=== PATIENT | female | born 1985 | race Caucasian/White ===

== ENCOUNTER 2016-05-16 09:58 | Emergency (ER) | payer BC ==
[2016-05-16] MEDS ORDERED: Ondansetron 4 MG/2 ML SDV IVPUSH ONE (10:13)
[2016-05-16] MEDS ORDERED: Ketorolac 30 MG/ML SDV IVPUSH ONE (10:13)
[2016-05-16] MEDS ORDERED: LORazepam 2 MG/ML MDV IVPUSH ONE (10:13)
[2016-05-16] MEDS ORDERED: Sodium Chloride 0.9% 1,000 ML IV ONE (10:13)
[2016-05-16] MEDS ORDERED: diphenhydrAMINE 50 MG/ML SDV IVPUSH ONE (10:49)
--- NOTE | 2016-05-16 10:57 | EDM.PDOC ---
ED HPI HEADACHE COMPLAINT - General Chief Complaint: Headache Stated Complaint: MIGRAINE Time Seen by Provider: 05/16/16 10:30 Source of Information: Reports: Patient History Limitations: Reports: No limitations - History of Present Illness INITIAL COMMENTS - FREE TEXT/NARRATIVE: History of present illness: [30-year-old female comes in with complaints of acute onset migraine headache. Patient does have a known history of migraines, does take medication for the, but indicates this one is one of her stronger ones. Patient denies this is the worst it's ever had in fact indicating this is slightly worse than average but not the worst headache of her life] Review of systems: As per history of present illness and below otherwise all systems reviewed and negative. Past medical history: As per history of present illness and as reviewed below otherwise noncontributory. Surgical history: As per history of present illness and as reviewed below otherwise noncontributory. Social history: No reported history of drug or alcohol abuse. Family history: As per history of present illness and as reviewed below otherwise noncontributory. Physical exam: HEENT: Atraumatic, normocephalic, pupils reactive, negative for conjunctival pallor or scleral icterus, mucous membranes moist, throat clear, neck supple, nontender, trachea midline. Lungs: Clear to auscultation, breath sounds equal bilaterally, chest nontender. Heart: S1S2, regular, negative for clicks, rubs, or JVD. Abdomen: Soft, nondistended, nontender. Negative for masses or hepatosplenomegaly. Negative for costovertebral tenderness. Pelvis: Stable nontender. Genitourinary: Deferred. Rectal: Deferred. Extremities: Atraumatic, negative for cords or calf pain. Neurovascular unremarkable. Neuro: Awake, alert, oriented. Cranial nerves II through XII unremarkable. Cerebellum unremarkable. Motor and sensory unremarkable throughout. Exam nonfocal. Patient had some locations specific hives to her right a.c. status post Zofran infusion. Patient denies any history of issues with Zofran, actually indicates prior stating she's had Zofran on many occasions without any side effects. Benadryl 50 mg IV given for new onset-and right a.c. Diagnostics: [] Therapeutics: [Zofran, Toradol, Ativan, later IV fluid, Benadryl 50 mg] Impression: [Migraine, allergic reaction] Plan: [Resume with routine migraine management followup with PCP when necessary] Definitive disposition and diagnosis as appropriate pending reevaluation and review of above. 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) Other OB/BYN History: LEEP Neurological History: Reports: Migraines - Infectious Disease History Infectious Disease History: Reports: C-difficile Other Infectious Disease History: childhood - Past Surgical History Female Surgical History: Reports: LEEP Social & Family History - Family History Family Medical History: Noncontributory - Tobacco Use Smoking Status *Q: Current Every Day Smoker Years of Tobacco use: 16 Packs/Tins Daily: 1 Used Tobacco, but Quit: No Second Hand Smoke Exposure: Yes - Caffeine Use Caffeine Use: Reports: None Caffeine Use Comment: 3-4 - Alcohol Use Days Per Week of Alcohol Use: 0 Number of Drinks Per Day: 0 Total Drinks Per Week: 0 - Recreational Drug Use Recreational Drug Use: No Drug Use in Last 12 Months: No - Living Situation & Occupation Living situation: Reports: with significant other (3 children) Occupation: employed ED ROS GENERAL - Review of Systems Review Of Systems: See Below (See history of present illness) - Physical Exam Exam: See Below (See history of present illness) Course - Vital Signs Last Recorded V/S: Last Vital Signs Temp 36.6 C 05/16/16 10:09 Pulse 68 05/16/16 11:30 Resp 16 05/16/16 11:30 BP 89/52 L 05/16/16 11:30 Pulse Ox 100 05/16/16 11:30 - Orders/Labs/Meds Meds: Medications Discontinued Medications Generic Name Dose Route Start Last Admin Trade Name Freq PRN Reason Stop Dose Admin Diphenhydramine HCl 50 mg 05/16/16 10:49 05/16/16 10:57 Benadryl IVPUSH 05/16/16 10:50 50 mg ONETIME ONE Administration Sodium Chloride 1,000 mls @ 999 mls/hr 05/16/16 10:13 05/16/16 10:33 Normal Saline IV 05/16/16 11:13 999 mls/hr STAT ONE Administration Ketorolac Tromethamine 30 mg 05/16/16 10:13 05/16/16 11:00 Toradol IVPUSH 05/16/16 10:14 30 mg ONETIME ONE Administration Lorazepam 1 mg 05/16/16 10:13 05/16/16 11:01 Ativan IVPUSH 05/16/16 10:14 1 mg ONETIME ONE Administration Ondansetron HCl 8 mg 05/16/16 10:13 05/16/16 10:33 Zofran IVPUSH 05/16/16 10:14 8 mg ONETIME ONE Administration Departure - Departure Time of Disposition: 12:10 Disposition: Home, Self-Care 01 Condition: good Clinical Impression: Migraine Instructions: Migraine Headache, [id number] Referrals: Jed Matt MD [Primary Care Provider] - Forms: ED Department Discharge Additional Instructions: The following information is given to patients seen in the emergency department who are being discharged to home. This information is to outline your options for follow-up care. We provide all patients seen in our emergency department with a follow-up referral. The need for follow-up, as well as the timing and circumstances, are variable depending upon the specifics of your emergency department visit. If you don't have a primary care physician on staff, we will provide you with a referral. We always advise you to contact your personal physician following an emergency department visit to inform them of the circumstance of the visit and for follow-up with them and/or the need for any referrals to a consulting specialist. The emergency department will also refer you to a specialist when appropriate. This referral assures that you have the opportunity for follow-up care with a specialist. All of these measure are taken in an effort to provide you with optimal care, which includes your follow-up. Under all circumstances we always encourage you to contact your private physician who remains a resource for coordinating your care. When calling for follow-up care, please make the office aware that this follow-up is from your recent emergency room visit. If for any reason you are refused follow-up, please contact the [facility] Emergency Department at and asked to speak to the emergency department charge nurse. Continue with your normal migraine routine management Followup with PCP in one to 2 days Return to ED as needed as discussed
[2016-05-16 12:52] VITALS: BP 94/45
== END 2016-05-16 12:08 | disposition home or self-care (01) ==
LOC: MW.ED 09:58
DX: G43.909 Migraine, unspecified, not intractable, without status migrainosus (principal); T78.40XA Allergy, unspecified, initial encounter; F17.210 Nicotine dependence, cigarettes, uncomplicated; Z79.899 Other long term (current) drug therapy
CPT/HCPCS: 96361; 96374; 96375; 99283; J1200; J1885; J2060; J2405; J7040; 99284

== ENCOUNTER 2016-06-24 08:07 | Emergency (ER) | payer BC ==
[2016-06-24] MEDS ORDERED: Sodium Chloride 0.9% 2.5 ML Syringe FLUSH PRN (08:38)
[2016-06-24] MEDS ORDERED: Ondansetron 4 MG/2 ML SDV IVPUSH ONE (08:38)
[2016-06-24] MEDS ORDERED: Ketorolac 30 MG/ML SDV IVPUSH ONE (08:38)
[2016-06-24] MEDS ORDERED: Sodium Chloride 0.9% 10 ML Syringe FLUSH PRN (08:38)
[2016-06-24] MEDS ORDERED: Sodium Chloride 0.9% 1,000 ML IV ONE (08:38)
[2016-06-24] MEDS ORDERED: Metoclopramide 10 MG/2 ML SDV IV ONE (08:51)
--- NOTE | 2016-06-24 09:28 | EDM.PDOC ---
ED HPI GENERAL MEDICAL PROBLEM - General Chief Complaint: Headache Stated Complaint: Migraine Time Seen by Provider: 06/24/16 08:09 Source of Information: Reports: Patient History Limitations: Reports: No limitations - History of Present Illness INITIAL COMMENTS - FREE TEXT/NARRATIVE: History of present illness: [] Patient has a history of migraines and presents with a typical migraine that began last night. She took Imitrex without any relief. She has been vomiting and states when she gets to this point she usually comes to the emergency room Review of systems: As per history of present illness and below otherwise all systems reviewed and negative. Past medical history: As per history of present illness and as reviewed below otherwise noncontributory. Surgical history: As per history of present illness and as reviewed below otherwise noncontributory. Social history: No reported history of drug or alcohol abuse. Family history: As per history of present illness and as reviewed below otherwise noncontributory. Physical exam: General: Well developed, well nourished in NAD HEENT: Atraumatic, normocephalic, pupils reactive, negative for conjunctival pallor or scleral icterus, mucous membranes moist, throat clear, neck supple, nontender, trachea midline. No sinus tenderness to palpation, no neck rigidity Lungs: Clear to auscultation, breath sounds equal bilaterally, chest nontender. Heart: S1S2, regular, negative for clicks, rubs, or JVD. Abdomen: Soft, nondistended, nontender. Negative for masses or hepatosplenomegaly. Negative for costovertebral tenderness. Pelvis: Stable nontender. Genitourinary: Deferred. Rectal: Deferred. Extremities: Atraumatic, negative for cords or calf pain. Neurovascular unremarkable. Neuro: Awake, alert, oriented. Cranial nerves II through XII unremarkable. Cerebellum unremarkable. Motor and sensory unremarkable throughout. Exam nonfocal. Diagnostics: [] Therapeutics: [] IV hydrated with Toradol and Reglan given with improvement Impression: [] Migraine headache Plan: [] Followup with your primary care as needed Definitive disposition and diagnosis as appropriate pending reevaluation and review of above. 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) Other OB/BYN History: LEEP Neurological History: Reports: Migraines - Infectious Disease History Infectious Disease History: Reports: Chicken pox Other Infectious Disease History: childhood - Past Surgical History Female Surgical History: Reports: LEEP Social & Family History - Family History Family Medical History: Noncontributory - Tobacco Use Smoking Status *Q: Current Every Day Smoker Years of Tobacco use: 16 Packs/Tins Daily: 1 Used Tobacco, but Quit: No Second Hand Smoke Exposure: Yes - Caffeine Use Caffeine Use: Reports: None Caffeine Use Comment: 3-4 - Alcohol Use Days Per Week of Alcohol Use: 0 Number of Drinks Per Day: 0 Total Drinks Per Week: 0 - Recreational Drug Use Recreational Drug Use: No Drug Use in Last 12 Months: No - Living Situation & Occupation Living situation: Reports: with significant other (3 children) Occupation: employed ED ROS GENERAL - Review of Systems Review Of Systems: See Below (See history of present illness) - Physical Exam Exam: See Below (See history of present illness) Course - Vital Signs Last Recorded V/S: Last Vital Signs Temp 36.9 C 06/24/16 09:41 Pulse 77 06/24/16 09:41 Resp 16 06/24/16 09:41 BP 103/44 L 06/24/16 09:41 Pulse Ox 98 06/24/16 09:41 - Orders/Labs/Meds Orders: Active Orders 24 hr Category Date Time Status Peripheral IV Insertion Adult [OM.PC] Stat Oth 06/24/16 08:38 Ordered Meds: Medications Discontinued Medications Generic Name Dose Route Start Last Admin Trade Name Freq PRN Reason Stop Dose Admin Sodium Chloride 1,000 mls @ 999 mls/hr 06/24/16 08:38 06/24/16 08:49 Normal Saline IV 06/24/16 09:38 999 mls/hr .Bolus ONE Administration Ketorolac Tromethamine 30 mg 06/24/16 08:38 06/24/16 08:51 Toradol IVPUSH 06/24/16 08:39 30 mg ONETIME ONE Administration Metoclopramide HCl 10 mg 06/24/16 08:51 06/24/16 09:02 Reglan IV 06/24/16 08:52 10 mg ONETIME ONE Administration Ondansetron HCl 4 mg 06/24/16 08:38 06/24/16 08:53 Zofran IVPUSH 06/24/16 08:39 Not Given ONETIME ONE Sodium Chloride 10 ml 06/24/16 08:38 Saline Flush FLUSH ASDIRECTED PRN Keep Vein Open Sodium Chloride 2.5 ml 06/24/16 08:38 Saline Flush FLUSH ASDIRECTED PRN Keep Vein Open Departure - Departure Time of Disposition: 11:00 Disposition: Home, Self-Care 01 Condition: good Clinical Impression: Migraine headache Qualifiers: Migraine type: other Status migrainosus presence: without status migrainosus Intractability: not intractable Qualified Code(s): G43.809 - Other migraine, not intractable, without status migrainosus - Discharge Information Instructions: Migraine Headache, [id number] Referrals: Jed Matt MD [Primary Care Provider] - Forms: ED Department Discharge Additional Instructions: The following information is given to patients seen in the emergency department who are being discharged to home. This information is to outline your options for follow-up care. We provide all patients seen in our emergency department with a follow-up referral. The need for follow-up, as well as the timing and circumstances, are variable depending upon the specifics of your emergency department visit. If you don't have a primary care physician on staff, we will provide you with a referral. We always advise you to contact your personal physician following an emergency department visit to inform them of the circumstance of the visit and for follow-up with them and/or the need for any referrals to a consulting specialist. The emergency department will also refer you to a specialist when appropriate. This referral assures that you have the opportunity for follow-up care with a specialist. All of these measure are taken in an effort to provide you with optimal care, which includes your follow-up. Under all circumstances we always encourage you to contact your private physician who remains a resource for coordinating your care. When calling for follow-up care, please make the office aware that this follow-up is from your recent emergency room visit. If for any reason you are refused follow-up, please contact the [facility] Emergency Department at and asked to speak to the emergency department charge nurse. [facility] [address] [place] [id number] - My Orders Last 24 Hours: My Active Orders 06/24/16 08:38 Peripheral IV Insertion Adult [OM.PC] Stat - Assessment/Plan Last 24 Hours: My Active Orders 06/24/16 08:38 Peripheral IV Insertion Adult [OM.PC] Stat ED HPI HEADACHE COMPLAINT - General Chief Complaint: Headache Stated Complaint: Migraine Time Seen by Provider: 06/24/16 08:09 - Related Data Allergies/ADRs: Allergies Allergy/AdvReac Type Severity Reaction Status Date / Time ondansetron Allergy Rash Verified 06/24/16 08:54 [From Zofran (as hydrochloride)] Home Meds: Home Meds Topiramate [Topamax] 50 mg PO DAILY 01/28/15 [History] SUMAtriptan Succinate [Imitrex] 100 mg PO DAILY PRN 06/24/16 [History] Departure - Departure Time of Disposition: 11:00 Disposition: Home, Self-Care 01 Clinical Impression: Migraine headache Qualifiers: Migraine type: other Status migrainosus presence: without status migrainosus Intractability: not intractable Qualified Code(s): G43.809 - Other migraine, not intractable, without status migrainosus Instructions: Migraine Headache, [id number] Referrals: Jed Matt MD [Primary Care Provider] - Forms: ED Department Discharge Additional Instructions: The following information is given to patients seen in the emergency department who are being discharged to home. This information is to outline your options for follow-up care. We provide all patients seen in our emergency department with a follow-up referral. The need for follow-up, as well as the timing and circumstances, are variable depending upon the specifics of your emergency department visit. If you don't have a primary care physician on staff, we will provide you with a referral. We always advise you to contact your personal physician following an emergency department visit to inform them of the circumstance of the visit and for follow-up with them and/or the need for any referrals to a consulting specialist. The emergency department will also refer you to a specialist when appropriate. This referral assures that you have the opportunity for follow-up care with a specialist. All of these measure are taken in an effort to provide you with optimal care, which includes your follow-up. Under all circumstances we always encourage you to contact your private physician who remains a resource for coordinating your care. When calling for follow-up care, please make the office aware that this follow-up is from your recent emergency room visit. If for any reason you are refused follow-up, please contact the [facility] Emergency Department at and asked to speak to the emergency department charge nurse. [facility] [address] [place] [id number]
[2016-06-24 10:05] VITALS: BP 103/44
== END 2016-06-24 09:41 | disposition home or self-care (01) ==
LOC: MW.ED 08:07
DX: G43.809 Other migraine, not intractable, without status migrainosus (principal); F17.210 Nicotine dependence, cigarettes, uncomplicated; Z88.8 Allergy status to other drugs, medicaments and biological substances; Z79.899 Other long term (current) drug therapy
CPT/HCPCS: 96361; 96374; 96375; 99283; J1885; J2765; J7040; 99284

== ENCOUNTER 2016-07-20 11:12 | Emergency (ER) | payer BC ==
[2016-07-20] MEDS ORDERED: Ketorolac 30 MG/ML SDV IVPUSH ONE (11:19)
[2016-07-20] MEDS ORDERED: Metoclopramide 10 MG/2 ML SDV IV ONE (11:19)
[2016-07-20] MEDS ORDERED: Sodium Chloride 0.9% 1,000 ML IV ONE (11:19)
[2016-07-20] MEDS ORDERED: diphenhydrAMINE 50 MG/ML SDV IVPUSH ONE (11:19)
--- NOTE | 2016-07-20 11:21 | EDM.PDOC ---
ED HPI GENERAL MEDICAL PROBLEM - General Chief Complaint: Headache Stated Complaint: MIGRANE Time Seen by Provider: 07/20/16 11:17 - History of Present Illness INITIAL COMMENTS - FREE TEXT/NARRATIVE: HISTORY AND PHYSICAL: History of present illness: Patient is a 30-year-old white female history migraine headaches presents with concern of acute migraine headache she says associated nausea states is his typical migraine she is followed by neurology for this and in the process of prophylactic therapy Review of systems: As per history of present illness and below otherwise all systems reviewed and negative. Past medical history: As per history of present illness and as reviewed below otherwise noncontributory. Surgical history: As per history of present illness and as reviewed below otherwise noncontributory. Social history: No reported history of drug or alcohol abuse. Family history: As per history of present illness and as reviewed below otherwise noncontributory. Physical exam: HEENT: Atraumatic, normocephalic, pupils reactive, negative for conjunctival pallor or scleral icterus, mucous membranes moist, throat clear, neck supple, nontender, trachea midline. Lungs: Clear to auscultation, breath sounds equal bilaterally, chest nontender. Heart: S1S2, regular, negative for clicks, rubs, or JVD. Abdomen: Soft, nondistended, nontender. Negative for masses or hepatosplenomegaly. Negative for costovertebral tenderness. Pelvis: Stable nontender. Genitourinary: Deferred. Rectal: Deferred. Extremities: Atraumatic, negative for cords or calf pain. Neurovascular unremarkable. Neuro: Awake, alert, oriented. Cranial nerves II through XII unremarkable. Cerebellum unremarkable. Motor and sensory unremarkable throughout. Exam nonfocal. Diagnostics: None Therapeutics: Normal saline 1 L bolus Reglan 10 mg IV Benadryl 50 mg IV Toradol 30 mg IV Impression: #1 migraine headache Definitive disposition and diagnosis as appropriate pending reevaluation and review of above. 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) Other OB/BYN History: LEEP Neurological History: Reports: Migraines - Infectious Disease History Infectious Disease History: Reports: Chicken Pox Other Infectious Disease History: childhood - Past Surgical History Female Surgical History: Reports: LEEP Social & Family History - Family History Family Medical History: Noncontributory - Tobacco Use Smoking Status *Q: Current Every Day Smoker Years of Tobacco use: 16 Packs/Tins Daily: 1 Used Tobacco, but Quit: No Second Hand Smoke Exposure: Yes - Caffeine Use Caffeine Use: Reports: None Caffeine Use Comment: 3-4 - Alcohol Use Days Per Week of Alcohol Use: 0 Number of Drinks Per Day: 0 Total Drinks Per Week: 0 - Recreational Drug Use Recreational Drug Use: No Drug Use in Last 12 Months: No - Living Situation & Occupation Living situation: Reports: with Significant Other Occupation: Employed ED ROS GENERAL - Review of Systems Review Of Systems: ROS reveals no pertinent complaints other than HPI. ED EXAM, GENERAL - Physical Exam Exam: See Below (See dictation) Course - Orders/Labs/Meds Orders: Active Orders 24 hr Category Date Time Status Ketorolac [Toradol] Med 07/20/16 11:19 Once 30 mg IVPUSH ONETIME ONE Metoclopramide [Reglan] Med 07/20/16 11:19 Once 10 mg IV ONETIME ONE Sodium Chloride 0.9% [Normal Saline] 1,000 ml Med 07/20/16 11:19 Ordered IV STAT diphenhydrAMINE [Benadryl] Med 07/20/16 11:19 Once 50 mg IVPUSH ONETIME ONE Departure - Departure Time of Disposition: 11:21 Disposition: Home, Self-Care 01 Condition: good Clinical Impression: Migraine - Discharge Information Forms: ED Department Discharge Additional Instructions: The following information is given to patients seen in the emergency department who are being discharged to home. This information is to outline your options for follow-up care. We provide all patients seen in our emergency department with a follow-up referral. The need for follow-up, as well as the timing and circumstances, are variable depending upon the specifics of your emergency department visit. If you don't have a primary care physician on staff, we will provide you with a referral. We always advise you to contact your personal physician following an emergency department visit to inform them of the circumstance of the visit and for follow-up with them and/or the need for any referrals to a consulting specialist. The emergency department will also refer you to a specialist when appropriate. This referral assures that you have the opportunity for followup care with a specialist. All of these measure are taken in an effort to provide you with optimal care, which includes your followup. Under all circumstances we always encourage you to contact your private physician who remains a resource for coordinating your care. When calling for followup care, please make the office aware that this follow-up is from your recent emergency room visit. If for any reason you are refused follow-up, please contact the [facility] emergency department at and asked to speak to the emergency department charge nurse. Continue current medications follow up primary medical doctor/neurology as discussed return as needed as discussed - My Orders Last 24 Hours: My Active Orders 07/20/16 11:19 Ketorolac [Toradol] 30 mg IVPUSH ONETIME ONE Metoclopramide [Reglan] 10 mg IV ONETIME ONE Sodium Chloride 0.9% [Normal Saline] 1,000 ml IV STAT diphenhydrAMINE [Benadryl] 50 mg IVPUSH ONETIME ONE - Assessment/Plan Last 24 Hours: My Active Orders 07/20/16 11:19 Ketorolac [Toradol] 30 mg IVPUSH ONETIME ONE Metoclopramide [Reglan] 10 mg IV ONETIME ONE Sodium Chloride 0.9% [Normal Saline] 1,000 ml IV STAT diphenhydrAMINE [Benadryl] 50 mg IVPUSH ONETIME ONE
[2016-07-20 12:17] VITALS: BP 106/66
== END 2016-07-20 12:19 | disposition home or self-care (01) ==
LOC: MW.ED 11:12
DX: G43.909 Migraine, unspecified, not intractable, without status migrainosus (principal); F17.210 Nicotine dependence, cigarettes, uncomplicated; Z79.899 Other long term (current) drug therapy; Z88.8 Allergy status to other drugs, medicaments and biological substances
CPT/HCPCS: 96361; 96374; 96375; 99283; J1200; J1885; J2765; J7040

== ENCOUNTER 2016-12-07 10:03 | Emergency (ER) | payer BC ==
[2016-12-07] MEDS ORDERED: LORazepam 2 MG/ML MDV IVPUSH ONE (10:18)
[2016-12-07] MEDS ORDERED: Ondansetron 4 MG/2 ML SDV IVPUSH ONE (10:18)
[2016-12-07] MEDS ORDERED: Sodium Chloride 0.9% 1,000 ML IV ONE (10:18)
[2016-12-07] MEDS ORDERED: Ketorolac 30 MG/ML SDV IVPUSH ONE (10:18)
--- NOTE | 2016-12-07 11:04 | EDM.PDOC ---
ED HPI GENERAL MEDICAL PROBLEM - General Chief Complaint: Headache Stated Complaint: MIGRAINE Time Seen by Provider: 12/07/16 10:50 Source of Information: Reports: Patient History Limitations: Reports: No Limitations - History of Present Illness INITIAL COMMENTS - FREE TEXT/NARRATIVE: History of present illness: [31-year-old female comes in complaining of migraine headache. Patient has long- standing history of migraines and sees the neurologist for treatment and management. Periodically once or twice a year the patient indicates that she needs more than her usual routine Imitrex and other self-care regimens that she uses at home. These require either an inpatient visit to the doctor or her coming to the ED] Review of systems: As per history of present illness and below otherwise all systems reviewed and negative. Past medical history: As per history of present illness and as reviewed below otherwise noncontributory. Surgical history: As per history of present illness and as reviewed below otherwise noncontributory. Social history: No reported history of drug or alcohol abuse. Family history: As per history of present illness and as reviewed below otherwise noncontributory. Physical exam: HEENT: Atraumatic, normocephalic, pupils reactive, negative for conjunctival pallor or scleral icterus, mucous membranes moist, throat clear, neck supple, nontender, trachea midline. Lungs: Clear to auscultation, breath sounds equal bilaterally, chest nontender. Heart: S1S2, regular, negative for clicks, rubs, or JVD. Abdomen: Soft, nondistended, nontender. Negative for masses or hepatosplenomegaly. Negative for costovertebral tenderness. Pelvis: Stable nontender. Genitourinary: Deferred. Rectal: Deferred. Extremities: Atraumatic, negative for cords or calf pain. Neurovascular unremarkable. Neuro: Awake, alert, oriented. Cranial nerves II through XII unremarkable. Cerebellum unremarkable. Motor and sensory unremarkable throughout. Exam nonfocal. Global assessment is benign save subjective complaint of the chronic migraine with exacerbation as stated in the history of present illness After treatment patient indicates that her headache is mostly resolved and has decreased to a 2 out of 10. She indicates that this is good and she is ready to go home. Diagnostics: [] Therapeutics: [IV fluid 1 L normal saline, Toradol, and, Zofran] Impression: [#1 migraine] Plan: [Discharged home Definitive disposition and diagnosis as appropriate pending reevaluation and review of above. headache Pain Score (Numeric/FACES): 9 - Related Data Allergies Allergy/AdvReac Type Severity Reaction Status Date / Time ondansetron Allergy Rash Verified 12/07/16 10:12 [From Zofran (as hydrochloride)] Home Meds: Home Meds SUMAtriptan Succinate [Imitrex] 100 mg PO DAILY PRN 06/24/16 [History] Divalproex Sodium [Depakote] 250 mg PO DAILY 07/20/16 [History] Past Medical History - Past Health History Medical/Surgical History: Denies Medical/Surgical History HEENT History: Reports: None Cardiovascular History: Reports: None Respiratory History: Reports: None Gastrointestinal History: Reports: None Genitourinary History: Reports: None [employer] 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 (See Below) Other OB/BYN History: LEEP Musculoskeletal History: Reports: None Neurological History: Reports: Migraines Psychiatric History: Reports: Anxiety Endocrine/Metabolic History: Reports: None Hematologic History: Reports: None Immunologic History: Reports: None Oncologic (Cancer) History: Reports: None Dermatologic History: Reports: None - Infectious Disease History Infectious Disease History: Reports: None Other Infectious Disease History: childhood - Past Surgical History Female Surgical History: Reports: LEEP Social & Family History - Family History Family Medical History: Noncontributory - Tobacco Use Smoking Status *Q: Current Every Day Smoker Years of Tobacco use: 15 Packs/Tins Daily: 1 Used Tobacco, but Quit: No Second Hand Smoke Exposure: Yes - Caffeine Use Caffeine Use: Reports: Coffee, Soda Caffeine Use Comment: 3 cups daily - Alcohol Use Days Per Week of Alcohol Use: 0 Number of Drinks Per Day: 0 Total Drinks Per Week: 0 - Recreational Drug Use Recreational Drug Use: No Drug Use in Last 12 Months: No - Living Situation & Occupation Living situation: Reports: with Significant Other Occupation: Employed ED ROS GENERAL - Review of Systems Review Of Systems: See Below (See history of present illness) ED EXAM, GENERAL - Physical Exam Exam: See Below (See history of present illness) Course - Vital Signs Last Recorded V/S: Last Vital Signs Temp 36 C 12/07/16 10:12 Pulse 68 12/07/16 11:12 Resp 16 12/07/16 11:12 BP 98/55 L 12/07/16 11:12 Pulse Ox 99 12/07/16 11:12 - Orders/Labs/Meds Meds: Medications Discontinued Medications Generic Name Dose Route Start Last Admin Trade Name Aleta PRN Reason Stop Dose Admin Sodium Chloride 1,000 mls @ 999 mls/hr 12/07/16 10:18 12/07/16 10:32 Normal Saline IV 12/07/16 11:18 999 mls/hr STAT ONE Administration Ketorolac Tromethamine 30 mg 12/07/16 10:18 12/07/16 11:15 Toradol IVPUSH 12/07/16 10:19 30 mg ONETIME ONE Administration Lorazepam 1 mg 12/07/16 10:18 12/07/16 11:08 Ativan IVPUSH 12/07/16 10:19 1 mg ONETIME ONE Administration Ondansetron HCl 8 mg 12/07/16 10:18 12/07/16 11:11 Zofran IVPUSH 12/07/16 10:19 8 mg ONETIME ONE Administration Departure - Departure Time of Disposition: 11:58 Disposition: Home, Self-Care 01 Condition: Good Clinical Impression: Migraine - Discharge Information Instructions: Recurrent Migraine Headache, [id number] Referrals: Jed Matt MD [Primary Care Provider] - Forms: ED Department Discharge Additional Instructions: The following information is given to patients seen in the emergency department who are being discharged to home. This information is to outline your options for follow-up care. We provide all patients seen in our emergency department with a follow-up referral. The need for follow-up, as well as the timing and circumstances, are variable depending upon the specifics of your emergency department visit. If you don't have a primary care physician on staff, we will provide you with a referral. We always advise you to contact your personal physician following an emergency department visit to inform them of the circumstance of the visit and for follow-up with them and/or the need for any referrals to a consulting specialist. The emergency department will also refer you to a specialist when appropriate. This referral assures that you have the opportunity for follow-up care with a specialist. All of these measure are taken in an effort to provide you with optimal care, which includes your follow-up. Under all circumstances we always encourage you to contact your private physician who remains a resource for coordinating your care. When calling for follow-up care, please make the office aware that this follow-up is from your recent emergency room visit. If for any reason you are refused follow-up, please contact the [facility] Emergency Department at and asked to speak to the emergency department charge nurse. Follow-up with your primary care provider once 2 days Return to ED as needed as discussed
[2016-12-07 12:11] VITALS: BP 110/64
== END 2016-12-07 12:08 | disposition home or self-care (01) ==
LOC: MW.ED 10:03
DX: G43.909 Migraine, unspecified, not intractable, without status migrainosus (principal); F17.210 Nicotine dependence, cigarettes, uncomplicated; Z79.899 Other long term (current) drug therapy; Z88.8 Allergy status to other drugs, medicaments and biological substances
CPT/HCPCS: 96361; 96374; 96375; 99284; J1885; J2060; J2405; J7040; 99282

== ENCOUNTER 2017-05-21 11:57 | Emergency (ER) | payer BC ==
[2017-05-21 12:35] VITALS: BP 119/55
[2017-05-21] MEDS ORDERED: Ondansetron 4 MG Tab.DIS PO ONE (12:36)
[2017-05-21] MEDS ORDERED: Ketorolac 60 MG/2 ML SDV IM ONE (12:36)
[2017-05-21] MEDS ORDERED: Acetaminophen/Butalbital/Caffeine 325-50-40 MG Tab PO ONE (13:37)
--- NOTE | 2017-05-21 15:21 | EDM.PDOC ---
ED HPI GENERAL MEDICAL PROBLEM - General Chief Complaint: Headache Stated Complaint: HEADACHES Time Seen by Provider: 05/21/17 12:30 Source of Information: Reports: Patient History Limitations: Reports: No Limitations - History of Present Illness INITIAL COMMENTS - FREE TEXT/NARRATIVE: History of present illness: []Patient has a history of migraine headaches and had one this morning. Patient took Toradol at home without relief. Patient states she usually takes Excedrin Migraine did not this time. Patient is not had any recent illnesses, sinus congestion, ear pain, sore throat, or change in type of pain. Review of systems: As per history of present illness and below otherwise all systems reviewed and negative. Past medical history: As per history of present illness and as reviewed below otherwise noncontributory. Surgical history: As per history of present illness and as reviewed below otherwise noncontributory. Social history: No reported history of drug or alcohol abuse. Family history: As per history of present illness and as reviewed below otherwise noncontributory. Physical exam: General: Well developed, well nourished in NAD HEENT: Atraumatic, normocephalic, pupils reactive, negative for conjunctival pallor or scleral icterus, mucous membranes moist, throat clear, neck supple, nontender, trachea midline. Lungs: Clear to auscultation, breath sounds equal bilaterally, chest nontender. Heart: S1S2, regular, negative for clicks, rubs, or JVD. Abdomen: Soft, nondistended, nontender. Negative for masses or hepatosplenomegaly. Negative for costovertebral tenderness. Pelvis: Stable nontender. Genitourinary: Deferred. Rectal: Deferred. Extremities: Atraumatic, negative for cords or calf pain. Neurovascular unremarkable. Neuro: Awake, alert, oriented. Cranial nerves II through XII unremarkable. Cerebellum unremarkable. Motor and sensory unremarkable throughout. Exam nonfocal. Diagnostics: [] Therapeutics: []Toradol, Fioricet with relief Impression: []Cephalgia Plan: []Fioricet prescription take as directed follow-up with PMD as needed Definitive disposition and diagnosis as appropriate pending reevaluation and review of above. Headache Pain Score (Numeric/FACES): 10 - Related Data Allergies Allergy/AdvReac Type Severity Reaction Status Date / Time ondansetron Allergy Rash Verified 12/07/16 10:12 [From Zofran (as hydrochloride)] Home Meds: Home Meds SUMAtriptan Succinate [Imitrex] 100 mg PO DAILY PRN 06/24/16 [History] Divalproex Sodium [Depakote] 250 mg PO DAILY 07/20/16 [History] Ketorolac Tromethamine [IJD: Ketorolac Tromethamine] 10 mg PO ASDIRECTED PRN 07/03 [History] Ondansetron [Zofran ODT] 4 mg PO ASDIRECTED PRN 05/21/17 [History] Past Medical History - Past Health History Medical/Surgical History: Denies Medical/Surgical History HEENT History: Reports: None Cardiovascular History: Reports: None Respiratory History: Reports: None Gastrointestinal History: Reports: None Genitourinary History: Reports: None [employer] 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 (See Below) Other OB/BYN History: LEEP Musculoskeletal History: Reports: None Neurological History: Reports: Migraines Psychiatric History: Reports: Anxiety Endocrine/Metabolic History: Reports: None Hematologic History: Reports: None Immunologic History: Reports: None Oncologic (Cancer) History: Reports: None Dermatologic History: Reports: None - Infectious Disease History Infectious Disease History: Reports: Chicken Pox Other Infectious Disease History: childhood - Past Surgical History Female Surgical History: Reports: LEEP Social & Family History - Family History Family Medical History: Noncontributory - Tobacco Use Smoking Status *Q: Current Every Day Smoker Years of Tobacco use: 16 Packs/Tins Daily: 0.5 Used Tobacco, but Quit: No Second Hand Smoke Exposure: Yes - Caffeine Use Caffeine Use: Reports: Coffee, Soda Caffeine Use Comment: 3 cups daily - Alcohol Use Days Per Week of Alcohol Use: 0 Number of Drinks Per Day: 0 Total Drinks Per Week: 0 - Recreational Drug Use Recreational Drug Use: No Drug Use in Last 12 Months: No - Living Situation & Occupation Living situation: Reports: with Significant Other Occupation: Employed ED ROS GENERAL - Review of Systems Review Of Systems: See Below (The history of present illness) - Physical Exam Exam: See Below (See history of present illness) Course - Vital Signs Last Recorded V/S: Last Vital Signs Temp 97.5 F 05/21/17 12:33 Pulse 89 05/21/17 12:33 Resp 16 05/21/17 12:33 BP 119/55 L 05/21/17 12:33 Pulse Ox 100 05/21/17 12:33 - Orders/Labs/Meds Meds: Medications Discontinued Medications Generic Name Dose Route Start Last Admin Trade Name Aleta PRN Reason Stop Dose Admin Acetaminophen/Butalbital/Caffeine 1 tab 05/21/17 13:37 05/21/17 14:58 Fioricet 325-50-40 Mg PO 05/21/17 13:38 1 tab ONETIME ONE Administration Ketorolac Tromethamine 60 mg 05/21/17 12:36 05/21/17 13:10 Toradol IM 05/21/17 12:37 60 mg ONETIME ONE Administration Ondansetron HCl 4 mg 05/21/17 12:36 05/21/17 13:10 Zofran Odt PO 05/21/17 12:37 4 mg ONETIME ONE Administration Departure - Departure Time of Disposition: 15:20 Disposition: Home, Self-Care 01 Condition: Good Clinical Impression: Cephalgia - Discharge Information Instructions: Migraine Headache, [id number] Referrals: Jed Matt MD [Primary Care Provider] - Forms: ED Department Discharge Additional Instructions: The following information is given to patients seen in the emergency department who are being discharged to home. This information is to outline your options for follow-up care. We provide all patients seen in our emergency department with a follow-up referral. The need for follow-up, as well as the timing and circumstances, are variable depending upon the specifics of your emergency department visit. If you don't have a primary care physician on staff, we will provide you with a referral. We always advise you to contact your personal physician following an emergency department visit to inform them of the circumstance of the visit and for follow-up with them and/or the need for any referrals to a consulting specialist. The emergency department will also refer you to a specialist when appropriate. This referral assures that you have the opportunity for follow-up care with a specialist. All of these measure are taken in an effort to provide you with optimal care, which includes your follow-up. Under all circumstances we always encourage you to contact your private physician who remains a resource for coordinating your care. When calling for follow-up care, please make the office aware that this follow-up is from your recent emergency room visit. If for any reason you are refused follow-up, please contact the Emergency Department at and asked to speak to the emergency department charge nurse. [Fioricet as directed. Follow-up with primary care return if symptoms worsen or change]
== END 2017-05-21 15:27 | disposition home or self-care (01) ==
LOC: MW.ED 11:57
DX: R51 Headache (principal); F17.210 Nicotine dependence, cigarettes, uncomplicated; Z88.8 Allergy status to other drugs, medicaments and biological substances; Z79.899 Other long term (current) drug therapy
CPT/HCPCS: 96372; 99283; A9270; J1885

== ENCOUNTER 2017-06-16 17:57 | Emergency (ER) | payer BC ==
--- NOTE | 2017-06-16 18:03 | EDM.PDOC ---
ED HPI GENERAL MEDICAL PROBLEM - General Chief Complaint: Headache Stated Complaint: MIGRAINE Time Seen by Provider: 06/16/17 18:03 Source of Information: Reports: Patient History Limitations: Reports: No Limitations - History of Present Illness INITIAL COMMENTS - FREE TEXT/NARRATIVE: HISTORY AND PHYSICAL: History of present illness: Patient is a 31-year-old female who presents to the emergency room today with complaints of migraine headache which started this morning. Patient has a long standing history of migraines, which she has several PRN medications prescribed to help alleviate. States she tried her Toradol, Zofran, Fioricet without any relief prior to coming to the emergency room. Immediately after taking these medications she did that and believes she wasn't able to keep any of the medications down. He denies any new head injury, trauma or falls. Review of systems: As per history of present illness and below otherwise all systems reviewed and negative. Past medical history: As per history of present illness and as reviewed below otherwise noncontributory. Surgical history: As per history of present illness and as reviewed below otherwise noncontributory. Social history: No reported history of drug or alcohol abuse. Family history: As per history of present illness and as reviewed below otherwise noncontributory. Physical exam: General: Developed and well-nourished 31-year-old female. Alert and oriented. Nontoxic appearing and in no acute distress. HEENT: Atraumatic, normocephalic, pupils equal and reactive bilaterally, negative for conjunctival pallor or scleral icterus, mucous membranes moist, throat clear, neck supple, nontender, trachea midline. No drooling or trismus noted. No meningeal signs Lungs: Clear to auscultation, breath sounds equal bilaterally, chest nontender. Heart: S1S2, regular rate and rhythm without overt murmur Abdomen: Soft, nondistended, nontender. Negative for masses or hepatosplenomegaly. Negative for costovertebral tenderness. Pelvis: Stable nontender. Genitourinary: Deferred. Rectal: Deferred. Skin: Intact, warm, dry. No lesions or rashes noted. Extremities: Atraumatic, negative for cords or calf pain. Neurovascular unremarkable. Neuro: Awake, alert, oriented. Cranial nerves II through XII unremarkable. Cerebellum unremarkable. Motor and sensory unremarkable throughout. Exam nonfocal. Notes: Patient did not have any relief after the Zofran, Toradol and Benadryl. We'll give her 0.5 mg of Ativan IV. She does have a ride. Vital signs are stable. Will continue to monitor. Vital signs remained stable. Patient dates her headache has resolved. She would like to go home for discharge. Education was completed. She denies any further questions at this time. Diagnostics: [] Therapeutics: IV fluid, Zofran, Toradol, Benadryl, Ativan Impression: Migraine Headache Plan: 1. Please rest/relax the remainder of the day in a dark and quiet room. No driving for the rest of the evening; due to the medications you were given in the ER. 2. Take your rescue migraine medications as needed. 3. Follow-up with your primary care provider or neurology in the next 1-2 days. Return to the ED as needed and as discussed. Definitive disposition and diagnosis as appropriate pending reevaluation and review of above. Onset: Today Headache Pain Score (Numeric/FACES): 10 - Related Data Allergies Allergy/AdvReac Type Severity Reaction Status Date / Time ondansetron Allergy Rash Verified 06/16/17 18:07 [From Zofran (as hydrochloride)] Home Meds: Home Meds SUMAtriptan Succinate [Imitrex] 100 mg PO DAILY PRN 06/24/16 [History] Divalproex Sodium [Depakote] 250 mg PO DAILY 07/20/16 [History] Ketorolac Tromethamine [IJD: Ketorolac Tromethamine] 10 mg PO ASDIRECTED PRN 07/03 [History] Ondansetron [Zofran ODT] 4 mg PO ASDIRECTED PRN 05/21/17 [History] Acetaminophen/Butalbital/Caff [Fioricet 325-50-40 MG] 1 tab PO ASDIRECTED PRN [History] Past Medical History - Past Health History Medical/Surgical History: Denies Medical/Surgical History HEENT History: Reports: None Cardiovascular History: Reports: None Respiratory History: Reports: None Gastrointestinal History: Reports: None Genitourinary History: Reports: None [employer] 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 (See Below) Other OB/BYN History: LEEP Musculoskeletal History: Reports: None Neurological History: Reports: Migraines Psychiatric History: Reports: Anxiety Endocrine/Metabolic History: Reports: None Hematologic History: Reports: None Immunologic History: Reports: None Oncologic (Cancer) History: Reports: None Dermatologic History: Reports: None - Infectious Disease History Infectious Disease History: Reports: Chicken Pox Other Infectious Disease History: childhood - Past Surgical History Female Surgical History: Reports: LEEP Social & Family History - Family History Family Medical History: Noncontributory - Tobacco Use Smoking Status *Q: Current Every Day Smoker Years of Tobacco use: 16 Packs/Tins Daily: 0.5 Used Tobacco, but Quit: No Second Hand Smoke Exposure: Yes - Caffeine Use Caffeine Use: Reports: Coffee, Soda Caffeine Use Comment: 3 cups daily - Alcohol Use Days Per Week of Alcohol Use: 0 Number of Drinks Per Day: 0 Total Drinks Per Week: 0 - Recreational Drug Use Recreational Drug Use: No Drug Use in Last 12 Months: No - Living Situation & Occupation Living situation: Reports: with Significant Other Occupation: Employed ED ROS GENERAL - Review of Systems Review Of Systems: ROS reveals no pertinent complaints other than HPI. - Physical Exam Exam: See Below (See dictation) Course - Vital Signs Last Recorded V/S: Last Vital Signs Temp 98.0 F 06/16/17 18:05 Pulse 78 06/16/17 19:19 Resp 18 06/16/17 19:19 BP 110/85 06/16/17 19:19 Pulse Ox 100 06/16/17 19:19 - Orders/Labs/Meds Meds: Medications Discontinued Medications Generic Name Dose Route Start Last Admin Trade Name Aleta PRN Reason Stop Dose Admin Diphenhydramine HCl 50 mg 06/16/17 18:21 06/16/17 18:52 Benadryl IVPUSH 06/16/17 18:22 50 mg ONETIME ONE Administration Sodium Chloride 1,000 mls @ 999 mls/hr 06/16/17 18:21 06/16/17 18:42 Normal Saline IV 06/16/17 19:21 999 mls/hr STAT ONE Administration Ketorolac Tromethamine 30 mg 06/16/17 18:21 06/16/17 18:46 Toradol IVPUSH 06/16/17 18:22 30 mg ONETIME ONE Administration Lorazepam 0.5 mg 06/16/17 19:20 06/16/17 19:26 Ativan IVPUSH 06/16/17 19:21 0.5 mg ONETIME ONE Administration Ondansetron HCl 4 mg 06/16/17 18:21 06/16/17 18:42 Zofran IVPUSH 06/16/17 18:22 4 mg ONETIME ONE Administration Departure - Departure Time of Disposition: 20:31 Disposition: Home, Self-Care 01 Clinical Impression: Migraine - Discharge Information Instructions: Migraine Headache, [id number] Referrals: Jed Matt MD [Primary Care Provider] - Forms: ED Department Discharge Additional Instructions: The following information is given to patients seen in the emergency department who are being discharged to home. This information is to outline your options for follow-up care. We provide all patients seen in our emergency department with a follow-up referral. The need for follow-up, as well as the timing and circumstances, are variable depending upon the specifics of your emergency department visit. If you don't have a primary care physician on staff, we will provide you with a referral. We always advise you to contact your personal physician following an emergency department visit to inform them of the circumstance of the visit and for follow-up with them and/or the need for any referrals to a consulting specialist. The emergency department will also refer you to a specialist when appropriate. This referral assures that you have the opportunity for follow-up care with a specialist. All of these measure are taken in an effort to provide you with optimal care, which includes your follow-up. Under all circumstances we always encourage you to contact your private physician who remains a resource for coordinating your care. When calling for follow-up care, please make the office aware that this follow-up is from your recent emergency room visit. If for any reason you are refused follow-up, please contact the [facility] Emergency Department at and asked to speak to the emergency department charge nurse. [facility] Primary Care [address] [place] [id number] [facility] Specialty Care - Neurology Professional Building [address] [place] [address], [address] [place] [address] 1. Please rest/relax the remainder of the day in a dark and quiet room. No driving for the rest of the evening; due to the medications you were given in the ER. 2. Take your rescue migraine medications as needed. 3. Follow-up with your primary care provider or neurology in the next 1-2 days. Return to the ED as needed and as discussed.
[2017-06-16] MEDS ORDERED: Ketorolac 30 MG/ML SDV IVPUSH ONE (18:21)
[2017-06-16] MEDS ORDERED: diphenhydrAMINE 50 MG/ML SDV IVPUSH ONE (18:21)
[2017-06-16] MEDS ORDERED: Sodium Chloride 0.9% 1,000 ML IV ONE (18:21)
[2017-06-16] MEDS ORDERED: Ondansetron 4 MG/2 ML SDV IVPUSH ONE (18:21)
[2017-06-16] MEDS ORDERED: LORazepam 2 MG/ML SDV IVPUSH ONE (19:20)
[2017-06-16 20:38] VITALS: BP 118/65
== END 2017-06-16 20:35 | disposition home or self-care (01) ==
LOC: MW.ED 17:57
DX: G43.909 Migraine, unspecified, not intractable, without status migrainosus (principal); F17.210 Nicotine dependence, cigarettes, uncomplicated; Z79.899 Other long term (current) drug therapy; Z88.8 Allergy status to other drugs, medicaments and biological substances
CPT/HCPCS: 96361; 96374; 96375; 99283; J1200; J1885; J2060; J2405; J7040

== ENCOUNTER 2018-03-08 09:46 | Emergency (ER) | payer BC ==
[2018-03-08] MEDS ORDERED: Sodium Chloride 0.9% 1,000 ML IV ONE (10:05)
[2018-03-08] MEDS ORDERED: Ketorolac 30 MG/ML SDV IVPUSH ONE (10:05)
[2018-03-08] MEDS ORDERED: diphenhydrAMINE 50 MG/ML SDV IVPUSH ONE (10:05)
[2018-03-08] MEDS ORDERED: Metoclopramide 10 MG/2 ML SDV IV ONE (10:05)
[2018-03-08] MEDS ORDERED: Ondansetron 4 MG/2 ML SDV IVPUSH ONE (10:05)
--- NOTE | 2018-03-08 10:12 | EDM.PDOC ---
ED HPI GENERAL MEDICAL PROBLEM - General Chief Complaint: Headache Stated Complaint: HEADACHE Time Seen by Provider: 03/08/18 09:54 Source of Information: Reports: Patient History Limitations: Reports: No Limitations - History of Present Illness INITIAL COMMENTS - FREE TEXT/NARRATIVE: HISTORY AND PHYSICAL: History of present illness: Patient is a 32-year-old female who presents to the emergency room with complaints of a left sided headache. She states that she has a history of migraines and does get 1-2 per week. She states she does have some rescue medication but has been out of this for approximately one week. She follows closely with her primary care provider but was unable to get in for medication refill. She states this migraine is like previous ones, has no concerns of this one being any worse. She does have light sensitivity, noise sensitivity and nausea. Denies any recent head injury or trauma. No visual changes. She denies any fever, chills, neck pain, chest pain, shortness of breath or cough. Denies any abdominal pain, vomiting, diarrhea, constipation or dysuria. Denies any chance of . Review of systems: As per history of present illness and below otherwise all systems reviewed and negative. Past medical history: As per history of present illness and as reviewed below otherwise noncontributory. Surgical history: As per history of present illness and as reviewed below otherwise noncontributory. Social history: See social history for further information Family history: As per history of present illness and as reviewed below otherwise noncontributory. Physical exam: General: Well-developed and well-nourished 32-year-old female. Alert and oriented. Nontoxic appearing and in no acute distress. HEENT: Atraumatic, normocephalic, pupils equal and reactive bilaterally, negative for conjunctival pallor or scleral icterus, mucous membranes moist, TMs normal bilaterally, throat clear, neck supple, nontender, trachea midline. No drooling or trismus noted. No meningeal signs. No hot potato voice noted. Lungs: Clear to auscultation, breath sounds equal bilaterally, chest nontender. Heart: S1S2, regular rate and rhythm without overt murmur Abdomen: Soft, nondistended, nontender. Negative for masses or hepatosplenomegaly. Negative for costovertebral tenderness. Pelvis: Stable nontender. Genitourinary: Deferred. Rectal: Deferred. Skin: Intact, warm, dry. No lesions or rashes noted. Extremities: Atraumatic, negative for cords or calf pain. Neurovascular unremarkable. Neuro: Awake, alert, oriented. Cranial nerves II through XII unremarkable. Cerebellum unremarkable. Motor and sensory unremarkable throughout. Exam nonfocal. Notes: CT of the head was discussed, she declines at this time. She does have a ride to home, will give IV fluids and medications. Patient feels improved after the fluids and medications. Vital signs are stable. We discussed appropriate follow-up with her primary care provider. I will give her a limited supply of her prescriptions that she has run out of of. She denies any further questions or concerns at this time. Patient does have a ride to home. Diagnostics: None Therapeutics: IV zofran, toradol, reglan, benadryl Prescription: Fioricet Zofran Toradol Impression: Migraine Headache Plan: 1. Please take the remainder of the day to rest in a dark quiet room. 2. A limited supply of your migraine medications has been prescribed for you. Take as directed. For further refills please follow-up with your primary care provider. 3. Please see her primary care provider in the next 1-2 days. Return to the ED as needed and as discussed. Definitive disposition and diagnosis as appropriate pending reevaluation and review of above. headache Pain Score (Numeric/FACES): 10 - Related Data Allergies Allergy/AdvReac Type Severity Reaction Status Date / Time No Known Allergies Allergy Verified 03/08/18 09:55 Home Meds: Home Meds Ketorolac Tromethamine [IJD: Ketorolac Tromethamine] 10 mg PO ASDIRECTED PRN 07/03 [History] Ondansetron [Zofran ODT] 4 mg PO ASDIRECTED PRN 05/21/17 [History] Acetaminophen/Butalbital/Caff [Fioricet 325-50-40 MG] 1 tab PO ASDIRECTED PRN [History] Acetaminophen/Butalbital/Caff [Fioricet 325-50-40 MG] 1 dose PO Q4HR PRN #30 tab 03/08/18 [Rx] Ketorolac [Toradol] 10 mg PO TID PRN #15 tab 03/08/18 [Rx] Ondansetron [Zofran ODT] 4 mg PO Q6H PRN #10 tab.dis 03/08/18 [Rx] Past Medical History - Past Health History Medical/Surgical History: Denies Medical/Surgical History HEENT History: Reports: None Cardiovascular History: Reports: None Respiratory History: Reports: None Gastrointestinal History: Reports: None Genitourinary History: Reports: None 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 Below) 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 Musculoskeletal History: Reports: None Neurological History: Reports: Migraines Psychiatric History: Reports: Anxiety Endocrine/Metabolic History: Reports: None Hematologic History: Reports: None Immunologic History: Reports: None Oncologic (Cancer) History: Reports: None Dermatologic History: Reports: None - Infectious Disease History Infectious Disease History: Reports: Chicken Pox Other Infectious Disease History: childhood - Past Surgical History Female Surgical History: Reports: LEEP Social & Family History - Family History Family Medical History: Noncontributory - Tobacco Use Smoking Status *Q: Current Every Day Smoker Years of Tobacco use: 13 Packs/Tins Daily: 1 - Caffeine Use Caffeine Use: Reports: Coffee, Soda Caffeine Use Comment: 3 cups daily - Recreational Drug Use Recreational Drug Use: No - Living Situation & Occupation Living situation: Reports: with Significant Other Occupation: Employed ED ROS GENERAL - Review of Systems Review Of Systems: ROS reveals no pertinent complaints other than HPI. - Physical Exam Exam: See Below (See dictation) Course - Vital Signs Last Recorded V/S: Last Vital Signs Temp 96.5 F 03/08/18 09:56 Pulse 75 03/08/18 09:56 Resp 18 03/08/18 09:56 BP 111/56 L 03/08/18 09:56 Pulse Ox 98 03/08/18 09:56 - Orders/Labs/Meds Meds: Medications Discontinued Medications Generic Name Dose Route Start Last Admin Trade Name Freq PRN Reason Stop Dose Admin Diphenhydramine HCl 50 mg 03/08/18 10:05 03/08/18 10:29 Benadryl IVPUSH 03/08/18 10:06 50 mg ONETIME ONE Administration Sodium Chloride 1,000 mls @ 999 mls/hr 03/08/18 10:05 03/08/18 10:29 Normal Saline IV 03/08/18 11:05 999 mls/hr STAT ONE Administration Ketorolac Tromethamine 30 mg 03/08/18 10:05 03/08/18 10:29 Toradol IVPUSH 03/08/18 10:06 30 mg ONETIME ONE Administration Metoclopramide HCl 10 mg 03/08/18 10:05 03/08/18 10:30 Reglan IV 03/08/18 10:06 10 mg ONETIME ONE Administration Ondansetron HCl 4 mg 03/08/18 10:05 03/08/18 10:29 Zofran IVPUSH 03/08/18 10:06 4 mg ONETIME ONE Administration Departure - Departure Time of Disposition: 11:34 Disposition: Home, Self-Care 01 Clinical Impression: Migraine headache Qualifiers: Migraine type: other Status migrainosus presence: without status migrainosus Intractability: not intractable Qualified Code(s): G43.809 - Other migraine, not intractable, without status migrainosus - Discharge Information Prescriptions: Acetaminophen/Butalbital/Caff [Fioricet 325-50-40 MG] 1 dose PO Q4HR PRN #30 tab PRN Reason: Headache Ketorolac [Toradol] 10 mg PO TID PRN #15 tab PRN Reason: Pain Ondansetron [Zofran ODT] 4 mg PO Q6H PRN #10 tab.dis PRN Reason: Nausea Instructions: Migraine Headache, [id number] Referrals: PCP,Unknown [Primary Care Provider] - Forms: ED Department Discharge Additional Instructions: The following information is given to patients seen in the emergency department who are being discharged to home. This information is to outline your options for follow-up care. We provide all patients seen in our emergency department with a follow-up referral. The need for follow-up, as well as the timing and circumstances, are variable depending upon the specifics of your emergency department visit. If you don't have a primary care physician on staff, we will provide you with a referral. We always advise you to contact your personal physician following an emergency department visit to inform them of the circumstance of the visit and for follow-up with them and/or the need for any referrals to a consulting specialist. The emergency department will also refer you to a specialist when appropriate. This referral assures that you have the opportunity for follow-up care with a specialist. All of these measure are taken in an effort to provide you with optimal care, which includes your follow-up. Under all circumstances we always encourage you to contact your private physician who remains a resource for coordinating your care. When calling for follow-up care, please make the office aware that this follow-up is from your recent emergency room visit. If for any reason you are refused follow-up, please contact the [facility] Emergency Department at and asked to speak to the emergency department charge nurse. [facility] [address] [place] [id number] [facility] [address] [place] [id number] 1. Please take the remainder of the day to rest in a dark quiet room. 2. A limited supply of your migraine medications has been prescribed for you. Take as directed. For further refills please follow-up with your primary care provider. 3. Please see her primary care provider in the next 1-2 days. Return to the ED as needed and as discussed.
[2018-03-08 12:04] VITALS: BP 117/55
== END 2018-03-08 12:00 | disposition home or self-care (01) ==
LOC: MW.ED 09:46
DX: G43.809 Other migraine, not intractable, without status migrainosus (principal); F17.210 Nicotine dependence, cigarettes, uncomplicated
CPT/HCPCS: 96361; 96374; 96375; 99283; J1200; J1885; J2405; J2765; J7040

== ENCOUNTER 2018-12-02 10:41 | Emergency (ER) | payer BC ==
[2018-12-02] MEDS ORDERED: Ketorolac 30 MG/ML SDV IVPUSH ONE (11:04)
[2018-12-02] MEDS ORDERED: Sodium Chloride 0.9% 1,000 ML IV ONE (11:04)
[2018-12-02] MEDS ORDERED: Ondansetron 4 MG/2 ML SDV IVPUSH ONE (11:04)
[2018-12-02] MEDS ORDERED: diphenhydrAMINE 50 MG/ML SDV IVPUSH ONE (11:04)
[2018-12-02] MEDS ORDERED: Metoclopramide 10 MG/2 ML SDV IV ONE (11:04)
--- NOTE | 2018-12-02 11:24 | EDM.PDOC ---
ED HPI GENERAL MEDICAL PROBLEM - General Chief Complaint: Headache Stated Complaint: MIGRAINE Time Seen by Provider: 12/02/18 10:42 Source of Information: Reports: Patient History Limitations: Reports: No Limitations - History of Present Illness INITIAL COMMENTS - FREE TEXT/NARRATIVE: HISTORY AND PHYSICAL: History of present illness: Patient is a 33-year-old female presents to the ED today with concern of migraine headache 2 days. Patient states she has a history of migraines and ran out of her rescue migraine medication so has not had any available to her. Patient states her symptoms today are typical of her usual migraine headaches with photophobia and nausea. Patient states she has taken Excedrin Migraine yesterday without relief of symptoms but has not taken anything today for her symptoms.Patient denies any other symptoms or concerns. Patient states she has had come to the ED before for her migraine headaches in medications that given the ED usually help her headaches. Patient denies fever, chills, chest pain, shortness of breath, or cough. Denies neck stiff ness, change in vision, syncope, or near syncope. Denies nausea, vomiting, abdominal pain, diarrhea, constipation, or dysuria. Has not noted any blood in urine or stool. Patient has been eating and drinking appropriately. Review of systems: As per history of present illness and below otherwise all systems reviewed and negative. Past medical history: As per history of present illness and as reviewed below otherwise noncontributory. Surgical history: As per history of present illness and as reviewed below otherwise noncontributory. Social history: See social history for further information Family history: As per history of present illness and as reviewed below otherwise noncontributory. Physical exam: General: Patient is alert, oriented, and in no acute distress. Patient sitting comfortably on exam table. HEENT: Atraumatic, normocephalic, pupils equal and reactive bilaterally, negative for conjunctival pallor or scleral icterus, mucous membranes moist, TMs normal bilaterally, throat clear, neck supple, nontender, trachea midline. No drooling or trismus noted. No meningeal signs. No hot potato voice noted. Lungs: Clear to auscultation, breath sounds equal bilaterally, chest nontender. Heart: S1S2, regular rate and rhythm without overt murmur Abdomen: Soft, nondistended, nontender. Negative for masses or hepatosplenomegaly. Negative for costovertebral tenderness. Pelvis: Stable nontender. Genitourinary: Deferred. Rectal: Deferred. Skin: Intact, warm, dry. No lesions or rashes noted. Extremities: Atraumatic, negative for cords or calf pain. Neurovascular unremarkable. Neuro: Awake, alert, oriented. Cranial nerves II through XII unremarkable. Cerebellum unremarkable. Motor and sensory unremarkable throughout. Exam nonfocal. Notes: Patient expresses resolution of symptoms today in the ED. Discussed the importance for follow-up with her primary care provider and neurologist. Voices understanding and is agreeable to plan of care. Denies any further questions or concerns at this time. Diagnostics: None Therapeutics: Saline, Zofran, Toradol, Benadryl, Reglan Prescription: None Impression: Migraine headache Plan: 1. Encourage small but frequent sips of fluid to prevent dehydration. 2. You can alternate ibuprofen and Tylenol as directed for pain and discomfort. 3. Follow up with your primary care provider or neurologist as discussed. Return to the ED as needed and as discussed. Definitive disposition and diagnosis as appropriate pending reevaluation and review of above. Headache Pain Score (Numeric/FACES): 10 - Related Data Allergies Allergy/AdvReac Type Severity Reaction Status Date / Time No Known Allergies Allergy Verified 12/02/18 11:03 Home Meds: Home Meds . 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 Musculoskeletal History: Reports: None Neurological History: Reports: Migraines Psychiatric History: Reports: Anxiety Endocrine/Metabolic History: Reports: None Hematologic History: Reports: None Immunologic History: Reports: None Oncologic (Cancer) History: Reports: None Dermatologic History: Reports: None - Infectious Disease History Infectious Disease History: Reports: Chicken Pox Other Infectious Disease History: childhood - Past Surgical History Female Surgical History: Reports: LEEP Social & Family History - Family History Family Medical History: Noncontributory - Tobacco Use Smoking Status *Q: Current Every Day Smoker Years of Tobacco use: 16 Packs/Tins Daily: 1 - Caffeine Use Caffeine Use: Reports: None Caffeine Use Comment: 3 cups daily - Recreational Drug Use Recreational Drug Use: No - Living Situation & Occupation Living situation: Reports: with Significant Other Occupation: Employed ED ROS GENERAL - Review of Systems Review Of Systems: ROS reveals no pertinent complaints other than HPI. ED EXAM, GENERAL - Physical Exam Exam: See Below (see dictation) Course - Vital Signs Last Recorded V/S: Last Vital Signs Temp 96.7 F 12/02/18 10:59 Pulse 71 12/02/18 11:33 Resp 16 12/02/18 11:33 BP 98/58 L 12/02/18 11:33 Pulse Ox 100 12/02/18 11:33 - Orders/Labs/Meds Meds: Medications Discontinued Medications Generic Name Dose Route Start Last Admin Trade Name Aleta PRN Reason Stop Dose Admin Diphenhydramine HCl 50 mg 12/02/18 11:04 12/02/18 11:30 Benadryl IVPUSH 12/02/18 11:05 50 mg ONETIME ONE Administration Sodium Chloride 1,000 mls @ 999 mls/hr 12/02/18 11:04 12/02/18 11:14 Normal Saline IV 12/02/18 12:04 999 mls/hr STAT ONE Administration Ketorolac Tromethamine 30 mg 12/02/18 11:04 12/02/18 11:18 Toradol IVPUSH 12/02/18 11:05 30 mg ONETIME ONE Administration Metoclopramide HCl 10 mg 12/02/18 11:04 12/02/18 11:24 Reglan IV 12/02/18 11:05 10 mg ONETIME ONE Administration Ondansetron HCl 4 mg 12/02/18 11:04 12/02/18 11:20 Zofran IVPUSH 12/02/18 11:05 4 mg ONETIME ONE Administration Departure - Departure Time of Disposition: 11:23 Disposition: Home, Self-Care 01 Clinical Impression: Migraine headache Qualifiers: Migraine type: unspecified Status migrainosus presence: without status migrainosus Intractability: not intractable Qualified Code(s): G43.909 - Migraine, unspecified, not intractable, without status migrainosus - Discharge Information Instructions: Migraine Headache, [id number], Recurrent Migraine Headache, [id number] Referrals: Jed Matt MD [Primary Care Provider] - Forms: ED Department Discharge Additional Instructions: The following information is given to patients seen in the emergency department who are being discharged to home. This information is to outline your options for follow-up care. We provide all patients seen in our emergency department with a follow-up referral. The need for follow-up, as well as the timing and circumstances, are variable depending upon the specifics of your emergency department visit. If you don't have a primary care physician on staff, we will provide you with a referral. We always advise you to contact your personal physician following an emergency department visit to inform them of the circumstance of the visit and for follow-up with them and/or the need for any referrals to a consulting specialist. The emergency department will also refer you to a specialist when appropriate. This referral assures that you have the opportunity for follow-up care with a specialist. All of these measure are taken in an effort to provide you with optimal care, which includes your follow-up. Under all circumstances we always encourage you to contact your private physician who remains a resource for coordinating your care. When calling for follow-up care, please make the office aware that this follow-up is from your recent emergency room visit. If for any reason you are refused follow-up, please contact the Emergency Department at and asked to speak to the emergency department charge nurse. Primary Care [address] [place] [address] [id number] [facility] - Neurology Professional Building [address] [facility], [address] [place] [address] 1. Encourage small but frequent sips of fluid to prevent dehydration. 2. You can alternate ibuprofen and Tylenol as directed for pain and discomfort. 3. Follow up with your primary care provider or neurologist as discussed. Return to the ED as needed and as discussed.
[2018-12-02 12:20] VITALS: BP 90/52; PULSE 82
== END 2018-12-02 12:18 | disposition home or self-care (01) ==
LOC: MW.ED 10:41
DX: G43.909 Migraine, unspecified, not intractable, without status migrainosus (principal); F17.210 Nicotine dependence, cigarettes, uncomplicated
CPT/HCPCS: 96361; 96374; 96375; 99283; J1200; J1885; J2405; J2765; J7040; 99282

== ENCOUNTER 2019-05-03 10:18 | Emergency (ER) | payer BC, MEDICAID ==
[2019-05-03] MEDS ORDERED: Sodium Chloride 0.9% 2.5 ML Syringe FLUSH PRN (10:45)
[2019-05-03] MEDS ORDERED: Sodium Chloride 0.9% 10 ML Syringe FLUSH PRN (10:45)
[2019-05-03] MEDS ORDERED: Sodium Chloride 0.9% 1,000 ML IV ONE (10:45)
[2019-05-03] MEDS ORDERED: Ondansetron 4 MG/2 ML SDV IVPUSH ONE (10:51)
[2019-05-03] MEDS ORDERED: diphenhydrAMINE 50 MG/ML SDV IVPUSH ONE (10:51)
[2019-05-03] MEDS ORDERED: Ketorolac 30 MG/ML SDV IVPUSH ONE (10:51)
[2019-05-03] MEDS ORDERED: Metoclopramide 10 MG/2 ML SDV IVPUSH ONE (10:51)
--- NOTE | 2019-05-03 10:51 | EDM.PDOC ---
ED HPI GENERAL MEDICAL PROBLEM - General Chief Complaint: Headache Stated Complaint: headache Time Seen by Provider: 05/03/19 10:50 Source of Information: Reports: Patient History Limitations: Reports: No Limitations - History of Present Illness INITIAL COMMENTS - FREE TEXT/NARRATIVE: HISTORY AND PHYSICAL: History of present illness: Patient is a 33-year-old female with history of migraines presents to the ED with complaint of headache. Patient states she developed a migraine headache last night. She reports she took an exedrin but this did not help with the headache. She reports a throbbing pain behind her left eye, photophobia, and nausea and vomiting. She states she had seen Dr. Lam, neurology, in the past and had been on preventative medication but had side effects with this so stopped it. She states this headache is similar to ones she has had in the past and is not new or worse than others. She denies fevers, chills, chest pain, shortness of breath, blurred or double vision, head injury or trauma. Review of systems: As per history of present illness and below otherwise all systems reviewed and negative. Past medical history: As per history of present illness and as reviewed below otherwise noncontributory. Surgical history: As per history of present illness and as reviewed below otherwise noncontributory. Social history: No reported history of drug or alcohol abuse. Family history: As per history of present illness and as reviewed below otherwise noncontributory. Physical exam: General: Patient sitting comfortably in no acute distress and nontoxic appearing HEENT: Atraumatic, normocephalic, pupils reactive, negative for conjunctival pallor or scleral icterus, mucous membranes moist, throat clear, neck supple, nontender, trachea midline. No meningeal signs. Lungs: Clear to auscultation, breath sounds equal bilaterally, chest nontender. Heart: S1S2, regular, negative for clicks, rubs, or overt murmur. Abdomen: Soft, nondistended, nontender. Negative for masses or hepatosplenomegaly. Negative for costovertebral tenderness. No rigidity, rebound , guarding. Pelvis: Stable nontender. Genitourinary: Deferred. Rectal: Deferred. Extremities: Atraumatic, negative for cords or calf pain. Neurovascular unremarkable. Neuro: Awake, alert, oriented. Cranial nerves II through XII unremarkable. Cerebellum unremarkable. Motor and sensory unremarkable throughout. Exam nonfocal. Notes: Patient reports headache improved from 7/10 to 0/10 and requesting to go home at this time. Diagnostics: none Therapeutics: 1L NS IV 4mg Zofran IV 10mg Reglan IV 30mg Toradol IV Prescriptions: none Impression: Migraine Plan: Drink plenty of fluids and rest as instructed Follow-up with primary care provider and neurology, please call the number provided to schedule appointment Return to ED as needed discussed Definitive disposition and diagnosis as appropriate pending reevaluation and review of above. left head Pain Score (Numeric/FACES): 8 - Related Data Allergies Allergy/AdvReac Type Severity Reaction Status Date / Time No Known Allergies Allergy Verified 05/03/19 10:42 Home Meds: Home Meds . [No Known Home Meds] 12/02/18 [History] Past Medical History - Past Health History Medical/Surgical History: Denies Medical/Surgical History HEENT History: Reports: None Cardiovascular History: Reports: None Respiratory History: Reports: None Gastrointestinal History: Reports: None Genitourinary History: Reports: None FINANCIAL HEALTH COUNSELOR 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 (See Below) Other FINANCIAL HEALTH COUNSELOR History: LEEP Musculoskeletal History: Reports: None Neurological History: Reports: Migraines Psychiatric History: Reports: Anxiety Endocrine/Metabolic History: Reports: None Hematologic History: Reports: None Immunologic History: Reports: None Oncologic (Cancer) History: Reports: None Dermatologic History: Reports: None - Infectious Disease History Infectious Disease History: Reports: Chicken Pox Other Infectious Disease History: childhood - Past Surgical History Female Surgical History: Reports: LEEP Social & Family History - Family History Family Medical History: Noncontributory - Tobacco Use Smoking Status *Q: Current Every Day Smoker Years of Tobacco use: 18 Packs/Tins Daily: 1 - Caffeine Use Caffeine Use: Reports: None Caffeine Use Comment: 3 cups daily - Recreational Drug Use Recreational Drug Use: No - Living Situation & Occupation Living situation: Reports: with Significant Other Occupation: Employed ED ROS GENERAL - Review of Systems Review Of Systems: Comprehensive ROS is negative, except as noted in HPI. - Physical Exam Exam: See Below (see dictation) Course - Vital Signs Last Recorded V/S: Last Vital Signs Temp 96.4 F L 05/03/19 10:40 Pulse 79 05/03/19 10:40 Resp 16 05/03/19 10:40 BP 90/57 L 05/03/19 10:40 Pulse Ox 97 05/03/19 10:40 - Orders/Labs/Meds Orders: Active Orders 24 hr Category Date Time Status Sodium Chloride 0.9% [Saline Flush] Med 05/03/19 10:45 Active 10 ml FLUSH ASDIRECTED PRN Sodium Chloride 0.9% [Saline Flush] Med 05/03/19 10:45 Active 2.5 ml FLUSH ASDIRECTED PRN Saline Lock Insert [OM.PC] Stat Oth 05/03/19 10:45 Ordered Medication Orders Sodium Chloride (Saline Flush) 10 ml FLUSH ASDIRECTED PRN PRN Reason: Keep Vein Open Sodium Chloride (Saline Flush) 2.5 ml FLUSH ASDIRECTED PRN PRN Reason: Keep Vein Open Meds: Medications Generic Name Dose Route Start Last Admin Trade Name Freq PRN Reason Stop Dose Admin Sodium Chloride 10 ml 05/03/19 10:45 Saline Flush FLUSH ASDIRECTED PRN Keep Vein Open Sodium Chloride 2.5 ml 05/03/19 10:45 Saline Flush FLUSH ASDIRECTED PRN Keep Vein Open Discontinued Medications Generic Name Dose Route Start Last Admin Trade Name Freq PRN Reason Stop Dose Admin Diphenhydramine HCl 25 mg 05/03/19 10:51 05/03/19 11:12 Benadryl IVPUSH 05/03/19 10:52 25 mg ONETIME ONE Administration Sodium Chloride 1,000 mls @ 999 mls/hr 05/03/19 10:45 05/03/19 11:11 Normal Saline IV 05/03/19 11:45 999 mls/hr STAT ONE Administration Ketorolac Tromethamine 30 mg 05/03/19 10:51 05/03/19 11:12 Toradol IVPUSH 05/03/19 10:52 30 mg ONETIME ONE Administration Metoclopramide HCl 10 mg 05/03/19 10:51 05/03/19 11:12 Reglan IVPUSH 05/03/19 10:52 10 mg ONETIME ONE Administration Ondansetron HCl 4 mg 05/03/19 10:51 05/03/19 11:12 Zofran IVPUSH 05/03/19 10:52 4 mg ONETIME ONE Administration Departure - Departure Time of Disposition: 12:26 Disposition: Home, Self-Care 01 Condition: Good Clinical Impression: Migraine Qualifiers: Migraine type: unspecified Status migrainosus presence: without status migrainosus Intractability: not intractable Qualified Code(s): G43.909 - Migraine, unspecified, not intractable, without status migrainosus - Discharge Information Referrals: Jed Matt MD [Primary Care Provider] - Forms: ED Department Discharge Care Plan Goals: The following information is given to patients seen in the emergency department who are being discharged to home. This information is to outline your options for follow-up care. We provide all patients seen in our emergency department with a follow-up referral. The need for follow-up, as well as the timing and circumstances, are variable depending upon the specifics of your emergency department visit. If you don't have a primary care physician on staff, we will provide you with a referral. We always advise you to contact your personal physician following an emergency department visit to inform them of the circumstance of the visit and for follow-up with them and/or the need for any referrals to a consulting specialist. The emergency department will also refer you to a specialist when appropriate. This referral assures that you have the opportunity for follow-up care with a specialist. All of these measure are taken in an effort to provide you with optimal care, which includes your follow-up. Under all circumstances we always encourage you to contact your private physician who remains a resource for coordinating your care. When calling for follow-up care, please make the office aware that this follow-up is from your recent emergency room visit. If for any reason you are refused follow-up, please contact the [facility] Emergency Department at and asked to speak to the emergency department charge nurse. [facility] [address] [place] [id number] [address] [id number] [facility] - Neurology Professional Building [address] [place] [address], [address] [place] [address] Drink plenty of fluids and rest as instructed Follow-up with primary care provider and neurology, please call the number provided to schedule appointment Return to ED as needed discussed Sepsis Event Note - Evaluation Sepsis Screening Result: No Definite Risk - Focused Exam Vital Signs: Vital Signs Temp Pulse Resp BP Pulse Ox 05/03/19 10:40 96.4 F L 79 16 90/57 L 97 Date Exam was Performed: 05/03/19 Time Exam was Performed: 12:26 - My Orders Last 24 Hours: My Active Orders 05/03/19 10:45 Sodium Chloride 0.9% [Saline Flush] 10 ml FLUSH ASDIRECTED PRN Sodium Chloride 0.9% [Saline Flush] 2.5 ml FLUSH ASDIRECTED PRN Saline Lock Insert [OM.PC] Stat - Assessment/Plan Last 24 Hours: My Active Orders 05/03/19 10:45 Sodium Chloride 0.9% [Saline Flush] 10 ml FLUSH ASDIRECTED PRN Sodium Chloride 0.9% [Saline Flush] 2.5 ml FLUSH ASDIRECTED PRN Saline Lock Insert [OM.PC] Stat
[2019-05-03 15:37] VITALS: BP 101/36; PULSE 75
== END 2019-05-03 12:48 | disposition home or self-care (01) ==
LOC: MW.ED 10:18
DX: G43.909 Migraine, unspecified, not intractable, without status migrainosus (principal); F17.210 Nicotine dependence, cigarettes, uncomplicated
CPT/HCPCS: 96361; 96374; 96375; 99283; J1200; J1885; J2405; J2765; J7030

== ENCOUNTER 2020-05-15 11:57 | Emergency (ER) | payer BC, MEDICAID ==
[2020-05-15] MEDS ORDERED: Sodium Chloride 0.9% 1,000 ML IV ONE (12:20)
[2020-05-15] MEDS ORDERED: Ketorolac 30 MG/ML SDV IVPUSH ONE (12:37)
[2020-05-15] MEDS ORDERED: Ondansetron 4 MG/2 ML SDV IVPUSH ONE (12:38)
[2020-05-15] MEDS ORDERED: diphenhydrAMINE 50 MG/ML SDV IVPUSH ONE (12:39)
[2020-05-15] MEDS ORDERED: Metoclopramide 10 MG/2 ML SDV IV ONE (12:39)
[2020-05-15] MEDS ORDERED: Hydrogen Peroxide 3% Top Soln 473 ML Bottle ONE (12:40)
--- NOTE | 2020-05-15 13:38 | EDM.PDOC ---
ED HPI GENERAL MEDICAL PROBLEM - General Chief Complaint: Headache Stated Complaint: MIGRAINE Time Seen by Provider: 05/15/20 12:03 Source of Information: Reports: Patient History Limitations: Reports: No Limitations - History of Present Illness INITIAL COMMENTS - FREE TEXT/NARRATIVE: HISTORY AND PHYSICAL: History of present illness: Patient is a 34-year-old female, with some known migraine disorder, who presents to the ED today with concern of a migraine x2 days. Patient states that she follows with her primary care provider, Dr. Matt for her migraines and has been doing well with Excedrin. Patient states that she took Excedrin yesterday and has not been able to get rid of her migraine. Patient states that she feels nauseous but has not vomited. Patient denies any head injury or loss of consciousness. Patient states that her migraine feels typical of her usual migraines, she has just not been able to get rid of it. Patient denies any other symptoms or concerns Patient denies fever, chills, chest pain, shortness of breath, or cough. Denies headache, neck stiff ness, change in vision, syncope, or near syncope. Denies nausea, vomiting, abdominal pain, diarrhea, constipation, or dysuria. Has not noted any blood in urine or stool. Patient has been eating and drinking appropriately. Review of systems: As per history of present illness and below otherwise all systems reviewed and negative. Past medical history: As per history of present illness and as reviewed below otherwise noncontributory. Surgical history: As per history of present illness and as reviewed below otherwise noncontributory. Social history: See social history for further information Family history: As per history of present illness and as reviewed below otherwise noncontri butory. Physical exam: General: Patient is alert, oriented, and in no acute distress. Patient sitting comfortably on exam table. Vitals stable and reviewed by me HEENT: Atraumatic, normocephalic, pupils equal and reactive bilaterally, negative for conjunctival pallor or scleral icterus, mucous membranes moist, TMs normal bilaterally, throat clear, neck supple, nontender, trachea midline. No drooling or trismus noted. No meningeal signs. No hot potato voice noted. Lungs: Clear to auscultation, breath sounds equal bilaterally, chest nontender. Heart: S1S2, regular rate and rhythm without overt murmur Abdomen: Soft, nondistended, nontender. Negative for masses or hepatosplenomegaly. Negative for costovertebral tenderness. Pelvis: Stable nontender. Genitourinary: Deferred. Rectal: Deferred. Skin: Intact, warm, dry. No lesions or rashes noted. Extremities: Atraumatic, negative for cords or calf pain. Neurovascular unremarkable. Neuro: Awake, alert, oriented. Cranial nerves II through XII unremarkable. Cerebellum unremarkable. Motor and sensory unremarkable throughout. Exam nonfocal. Notes: Full evaluation of patient, she is holding an emesis bag but she is not actively vomiting. She does have a known history of migraines and follows with her primary care provider, Dr. Matt. She denies any change of her typical migraine presentation and no head injury or trauma. She states there is a chance of her being , so prior to therapeutics, will rule out . hCG is negative. On reevaluation of patient, she expresses near resolution of her migraine and states that she feels well enough to go home. Patient is stable for discharge. Patient remains vitally stable throughout stay in ED. Signs and symptoms that were prompt return to the ED thoroughly discussed with patient. Voices understanding and is agreeable to plan of care. Denies any further questions or concerns at this time. Diagnostics: [facility] [place] Therapeutics: NS, Toradol, Zofran, Benadryl, Reglan Prescription: None Impression: Migraine, improved Plan: 1. You can alternate ibuprofen and Tylenol as directed for pain and discomfort. 2. Encourage small but frequent sips of fluid to prevent dehydration. 3. Follow-up with your primary care provider as discussed. Return to the ED as needed and as discussed. Definitive disposition and diagnosis as appropriate pending reevaluation and review of above. headache Pain Score (Numeric/FACES): 9 - Related Data Allergies Allergy/AdvReac Type Severity Reaction Status Date / Time No Known Allergies Allergy Verified 05/15/20 12:08 Home Meds: Home Meds . [No Known Home Meds] 12/02/18 [History] Past Medical History - Past Health History Medical/Surgical History: Denies Medical/Surgical History HEENT History: Reports: None Cardiovascular History: Reports: None Respiratory History: Reports: None Gastrointestinal History: Reports: None Genitourinary History: Reports: None NATURAL RESOURCE TECHNICIAN 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 (See Below) Other NATURAL RESOURCE TECHNICIAN History: LEEP Musculoskeletal History: Reports: None Neurological History: Reports: Migraines Psychiatric History: Reports: Anxiety Endocrine/Metabolic History: Reports: None Hematologic History: Reports: None Immunologic History: Reports: None Oncologic (Cancer) History: Reports: None Dermatologic History: Reports: None - Infectious Disease History Infectious Disease History: Reports: Chicken Pox Other Infectious Disease History: childhood - Past Surgical History Female Surgical History: Reports: LEEP Social & Family History - Family History Family Medical History: No Pertinent Family History Endocrine/Metabolic: Reports: Diabetes, Type I - Tobacco Use Tobacco Use Status *Q: Current Every Day Tobacco User Years of Tobacco use: 20 Packs/Tins Daily: 1 - Caffeine Use Caffeine Use: Reports: None Caffeine Use Comment: 3 cups daily - Recreational Drug Use Recreational Drug Use: No - Living Situation & Occupation Living situation: Reports: with Significant Other Occupation: Employed ED ROS GENERAL - Review of Systems Review Of Systems: Comprehensive ROS is negative, except as noted in HPI. ED EXAM, GENERAL - Physical Exam Exam: See Below (see dictation) Course - Vital Signs Last Recorded V/S: Last Vital Signs Temp 96.3 F L 05/15/20 12:06 Pulse 68 05/15/20 12:06 Resp 18 05/15/20 12:06 BP 105/53 L 05/15/20 12:06 Pulse Ox 100 05/15/20 12:06 - Orders/Labs/Meds Labs: Laboratory Tests 05/15/20 Range/Units 12:10 Urine HCG, Qual NEGATIVE (NEGATIVE) Meds: Medications Discontinued Medications Generic Name Dose Route Start Last Admin Trade Name Aleta PRN Reason Stop Dose Admin Diphenhydramine HCl 50 mg 05/15/20 12:39 05/15/20 13:01 Diphenhydramine 50 Mg/Ml Sdv IVPUSH 05/15/20 12:40 50 mg ONETIME ONE Administration Hydrogen Peroxide Confirm 05/15/20 12:40 05/15/20 12:59 Hydrogen Peroxide 3% Top Soln 473 Ml Bottle Administered 05/15/20 12:41 Not Given Dose 473 ml .ROUTE .STK-MED ONE Sodium Chloride 1,000 mls @ 999 mls/hr 05/15/20 12:20 05/15/20 13:01 Normal Saline IV 05/15/20 13:20 999 mls/hr STAT ONE Administration Ketorolac Tromethamine 30 mg 05/15/20 12:37 05/15/20 13:00 Ketorolac 30 Mg/Ml Sdv IVPUSH 05/15/20 12:38 30 mg ONETIME ONE Administration Metoclopramide HCl 10 mg 05/15/20 12:39 05/15/20 13:01 Metoclopramide 10 Mg/2 Ml Sdv IV 05/15/20 12:40 10 mg ONETIME ONE Administration Ondansetron HCl 4 mg 05/15/20 12:38 05/15/20 13:01 Ondansetron 4 Mg/2 Ml Sdv IVPUSH 05/15/20 12:39 4 mg ONETIME ONE Administration Departure - Departure Time of Disposition: 13:32 Disposition: Home, Self-Care 01 Clinical Impression: Migraine Qualifiers: Migraine type: unspecified Status migrainosus presence: without status migrainosus Intractability: not intractable Qualified Code(s): G43.909 - Migraine, unspecified, not intractable, without status migrainosus - Discharge Information Referrals: Jed Matt MD [Primary Care Provider] - Forms: ED Department Discharge, ED Return to Work/School Form Additional Instructions: The following information is given to patients seen in the emergency department who are being discharged to home. This information is to outline your options for follow-up care. We provide all patients seen in our emergency department with a follow-up referral. The need for follow-up, as well as the timing and circumstances, are variable depending upon the specifics of your emergency department visit. If you don't have a primary care physician on staff, we will provide you with a referral. We always advise you to contact your personal physician following an emergency department visit to inform them of the circumstance of the visit and for follow-up with them and/or the need for any referrals to a consulting specialist. The emergency department will also refer you to a specialist when appropriate. This referral assures that you have the opportunity for follow-up care with a specialist. All of these measure are taken in an effort to provide you with optimal care, which includes your follow-up. Under all circumstances we always encourage you to contact your private physician who remains a resource for coordinating your care. When calling for follow-up care, please make the office aware that this follow-up is from your recent emergency room visit. If for any reason you are refused follow-up, please contact the [facility] Emergency Department at and asked to speak to the emergency department charge nurse. [facility] [address] [place] [address] [address] 1. You can alternate ibuprofen and Tylenol as directed for pain and discomfort. 2. Encourage small but frequent sips of fluid to prevent dehydration. 3. Follow-up with your primary care provider as discussed. Return to the ED as needed and as discussed. Sepsis Event Note (ED) - Evaluation Sepsis Screening Result: No Definite Risk - Focused Exam Vital Signs: Vital Signs Temp Pulse Resp BP Pulse Ox 05/15/20 12:06 96.3 F L 68 18 105/53 L 100
[2020-05-15 13:56] VITALS: BP 101/64; PULSE 77
== END 2020-05-15 14:02 | disposition home or self-care (01) ==
LOC: MW.ED 11:57
DX: G43.909 Migraine, unspecified, not intractable, without status migrainosus (principal); Z72.0 Tobacco use
CPT/HCPCS: 81025; 96374; 96375; 99283; J1200; J1885; J2405; J2765; J7030

== ENCOUNTER 2020-07-05 14:46 | Emergency (ER) | payer MEDICAID ==
[2020-07-05] MEDS ORDERED: Ketorolac 15 MG/ML SDV IVPUSH ONE (15:24)
[2020-07-05] MEDS ORDERED: Metoclopramide 10 MG/2 ML SDV IVPUSH ONE (15:24)
[2020-07-05] MEDS ORDERED: Sodium Chloride 0.9% 2.5 ML Syringe FLUSH PRN (15:24)
[2020-07-05] MEDS ORDERED: Sodium Chloride 0.9% 10 ML Syringe FLUSH PRN (15:24)
[2020-07-05] MEDS ORDERED: diphenhydrAMINE 50 MG/ML SDV IVPUSH ONE (15:25)
--- NOTE | 2020-07-05 15:27 | EDM.PDOC ---
ED HPI GENERAL MEDICAL PROBLEM - General Chief Complaint: Headache Stated Complaint: MIGRAINE Time Seen by Provider: 07/05/20 14:48 - History of Present Illness INITIAL COMMENTS - FREE TEXT/NARRATIVE: History of present illness: [] Patient awakened with a severe throbbing headache in the left side of her mosque. This happens when she has a migraine. She wakes up with them. Usually they are improved with Excedrin or with Imitrex pills. She did not try that today. The headaches are happening with increased frequency the last few months. She has increased stress. Patient's had headaches like this since she was 16 years of age. There is nothing really different about this 1 except it is worse than usual and last longer than usual. She is also nauseated and vomiting. She is on her menstrual period now. She does not think she is . Review of systems: As per history of present illness and below otherwise all systems reviewed and negative. Past medical history: As per history of present illness and as reviewed below otherwise noncontributory. Surgical history: As per history of present illness and as reviewed below otherwise noncontributory. Social history: No reported history of drug or alcohol abuse. Family history: As per history of present illness and as reviewed below otherwise noncontributory. Physical exam: Constitutional - well developed, well-nourished and in no acute distress HEENT - normocephalic, no evidence of trauma - external nose and mouth normal - no mass in neck and no JVD - mucosae moist EYES - full EOM, PERRL, no icterus - no evidence of inflammation, injection, or drainage Respiratory - no respiratory distress, equal bilateral expansion Musculoskeletal no gross deformity of long bones or joints - no tenderness, swelling or edema Neurologic - Alert and oriented times four - CN II-XII grossly intact - motor sensory and coordination symmetrically normal Psychiatric - appropriate mood and affect with normal thought content Hematologic - No petechiae or purpura - mucosa appropriate color and sclera not pale - normal nail bed color and refill Integument - no rash or evidence of trauma - normal turgor Diagnostics: [] Therapeutics: [] Impression: [] Plan: [] Definitive disposition and diagnosis as appropriate pending reevaluation and review of above. Migraine Pain Score (Numeric/FACES): 7 - Related Data Allergies Allergy/AdvReac Type Severity Reaction Status Date / Time No Known Allergies Allergy Verified 07/05/20 15:07 Home Meds: Home Meds SUMAtriptan [Imitrex] 1 tab PO ASDIRECTED 07/05/20 [History] Past Medical History - Past Health History Medical/Surgical History: Denies Medical/Surgical History HEENT History: Reports: None Cardiovascular History: Reports: None Respiratory History: Reports: None Gastrointestinal History: Reports: None Genitourinary History: Reports: None PRODUCT MANAGEMENT INTERN 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 (See Below) Other PRODUCT MANAGEMENT INTERN History: LEEP Musculoskeletal History: Reports: None Neurological History: Reports: Migraines Psychiatric History: Reports: Anxiety Endocrine/Metabolic History: Reports: None Hematologic History: Reports: None Immunologic History: Reports: None Oncologic (Cancer) History: Reports: None Dermatologic History: Reports: None - Infectious Disease History Infectious Disease History: Reports: Chicken Pox Other Infectious Disease History: childhood - Past Surgical History Female Surgical History: Reports: LEEP Social & Family History - Family History Family Medical History: No Pertinent Family History Endocrine/Metabolic: Reports: Diabetes, Type I - Caffeine Use Caffeine Use: Reports: None Caffeine Use Comment: 3 cups daily - Recreational Drug Use Recreational Drug Use: No - Living Situation & Occupation Living situation: Reports: with Significant Other Occupation: Employed ED ROS GENERAL - Review of Systems Review Of Systems: Comprehensive ROS is negative, except as noted in HPI. ED EXAM, GENERAL - Physical Exam Exam: See Below Free Text/Narrative:: My physical exam is in the HPI Course - Vital Signs Text/Narrative:: 1606 hrs. patient feels better. Last Recorded V/S: Last Vital Signs Temp 36.4 C 07/05/20 15:07 Pulse 77 07/05/20 15:07 Resp 15 07/05/20 15:07 BP 101/72 07/05/20 15:07 Pulse Ox 98 07/05/20 15:07 - Orders/Labs/Meds Orders: Active Orders 24 hr Category Date Time Status Urine [HCG QUALITATIVE,URINE] [URCHEM] Stat Lab 07/05/20 15:27 Stop Req Sodium Chloride 0.9% [Saline Flush] Med 07/05/20 15:24 Active 10 ml FLUSH ASDIRECTED PRN Sodium Chloride 0.9% [Saline Flush] Med 07/05/20 15:24 Active 2.5 ml FLUSH ASDIRECTED PRN Saline Lock Insert [OM.PC] Stat Oth 07/05/20 15:24 Ordered Medication Orders Sodium Chloride (Sodium Chloride 0.9% 10 Ml Syringe) 10 ml FLUSH ASDIRECTED PRN PRN Reason: Keep Vein Open Last Admin: 07/05/20 15:41 Dose: 10 ml Documented by: ORQUIDEA Sodium Chloride (Sodium Chloride 0.9% 2.5 Ml Syringe) 2.5 ml FLUSH ASDIRECTED PRN PRN Reason: Keep Vein Open Last Admin: 07/05/20 15:41 Dose: 2.5 ml Documented by: ORQUIDEA Meds: Medications Generic Name Dose Route Start Last Admin Trade Name Freq PRN Reason Stop Dose Admin Sodium Chloride 10 ml 07/05/20 15:24 07/05/20 15:41 Sodium Chloride 0.9% 10 Ml Syringe FLUSH 10 ml ASDIRECTED PRN Administration Keep Vein Open Sodium Chloride 2.5 ml 07/05/20 15:24 07/05/20 15:41 Sodium Chloride 0.9% 2.5 Ml Syringe FLUSH 2.5 ml ASDIRECTED PRN Administration Keep Vein Open Discontinued Medications Generic Name Dose Route Start Last Admin Trade Name Freq PRN Reason Stop Dose Admin Diphenhydramine HCl 25 mg 07/05/20 15:25 07/05/20 15:41 Diphenhydramine 50 Mg/Ml Sdv IVPUSH 07/05/20 15:26 25 mg ONETIME ONE Administration Ketorolac Tromethamine 15 mg 07/05/20 15:24 07/05/20 15:40 Ketorolac 15 Mg/Ml Sdv IVPUSH 07/05/20 15:25 15 mg ONETIME ONE Administration Metoclopramide HCl 10 mg 07/05/20 15:24 07/05/20 15:41 Metoclopramide 10 Mg/2 Ml Sdv IVPUSH 07/05/20 15:25 10 mg ONETIME ONE Administration Departure - Departure Time of Disposition: 16:06 Disposition: Home, Self-Care 01 Condition: Good Clinical Impression: Migraine Qualifiers: Migraine type: unspecified Status migrainosus presence: without status migrainosus Intractability: not intractable Qualified Code(s): G43.909 - Migraine, unspecified, not intractable, without status migrainosus - Discharge Information Instructions: Migraine Headache, [id number] Referrals: Jed Matt MD [Primary Care Provider] - Forms: ED Department Discharge Additional Instructions: [facility] - Primary Care [address] [place] [address] [facility] [address] [place] [address] The following information is given to patients seen in the emergency department who are being discharged to home. This information is to outline your options for follow-up care. We provide all patients seen in our emergency department with a follow-up referral. The need for follow-up, as well as the timing and circumstances, are variable depending upon the specifics of your emergency department visit. If you don't have a primary care physician on staff, we will provide you with a referral. We always advise you to contact your personal physician following an emergency department visit to inform them of the circumstance of the visit and for follow-up with them and/or the need for any referrals to a consulting specialist. The emergency department will also refer you to a specialist when appropriate. This referral assures that you have the opportunity for follow-up care with a specialist. All of these measure are taken in an effort to provide you with optimal care, which includes your follow-up. Under all circumstances we always encourage you to contact your private physician who remains a resource for coordinating your care. When calling for follow-up care, please make the office aware that this follow-up is from your recent emergency room visit. If for any reason you are refused follow-up, please contact the [facility] Emergency Department at and asked to speak to the emergency department charge nurse. Sepsis Event Note (ED) - Evaluation Sepsis Screening Result: No Definite Risk - Focused Exam Vital Signs: Vital Signs Temp Pulse Resp BP Pulse Ox 07/05/20 15:07 36.4 C 77 15 101/72 98 - My Orders Last 24 Hours: My Active Orders 07/05/20 15:24 Sodium Chloride 0.9% [Saline Flush] 10 ml FLUSH ASDIRECTED PRN Sodium Chloride 0.9% [Saline Flush] 2.5 ml FLUSH ASDIRECTED PRN Saline Lock Insert [OM.PC] Stat 07/05/20 15:27 Urine [HCG QUALITATIVE,URINE] [URCHEM] Stat - Assessment/Plan Last 24 Hours: My Active Orders 07/05/20 15:24 Sodium Chloride 0.9% [Saline Flush] 10 ml FLUSH ASDIRECTED PRN Sodium Chloride 0.9% [Saline Flush] 2.5 ml FLUSH ASDIRECTED PRN Saline Lock Insert [OM.PC] Stat 07/05/20 15:27 Urine [HCG QUALITATIVE,URINE] [URCHEM] Stat
[2020-07-05 16:14] VITALS: BP 100/68; PULSE 86
== END 2020-07-05 16:13 | disposition home or self-care (01) ==
LOC: MW.ED 14:46
DX: G43.909 Migraine, unspecified, not intractable, without status migrainosus (principal)
CPT/HCPCS: 96374; 96375; 99283; J1200; J1885; J2765

== ENCOUNTER 2020-10-17 08:06 | Emergency (ER) | payer MEDICAID ==
[2020-10-17] MEDS ORDERED: diphenhydrAMINE 50 MG/ML SDV IVPUSH ONE (08:22)
[2020-10-17] MEDS ORDERED: Metoclopramide 10 MG/2 ML SDV IVPUSH ONE (08:22)
[2020-10-17] MEDS ORDERED: Acetaminophen 500 MG Tab PO ONE (08:22)
[2020-10-17] MEDS ORDERED: Sodium Chloride 0.9% 2.5 ML Syringe FLUSH PRN (08:22)
[2020-10-17] MEDS ORDERED: Sodium Chloride 0.9% 1,000 ML IV ONE (08:22)
[2020-10-17] MEDS ORDERED: Sodium Chloride 0.9% 10 ML Syringe FLUSH PRN (08:22)
[2020-10-17] MEDS ORDERED: Ketorolac 15 MG/ML SDV IVPUSH ONE (08:23)
--- NOTE | 2020-10-17 08:31 | EDM.PDOC ---
ED HPI GENERAL MEDICAL PROBLEM - General Chief Complaint: Headache Stated Complaint: THROWING UP ALL NIGHT,MIGRAINES Time Seen by Provider: 10/17/20 08:11 Source of Information: Reports: Patient, Old Records History Limitations: Reports: No Limitations - History of Present Illness INITIAL COMMENTS - FREE TEXT/NARRATIVE: 34-year-old female past medical history recurrent migraine headaches presents for migraine headache. Patient is on sumatriptan at home. Patient notes that this feels very typical of her migraine headaches. It started around 9 PM yesterday and has progressed throughout the evening. She does try Excedrin at home without relief. She notes nausea and has had a few episodes of emesis this morning. She denies any one-sided weakness, slurred speech, confusion. Not worst headache of her life. Feels typical of her migraine headaches. 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 Pain Score (Numeric/FACES): 8 - Related Data Allergies Allergy/AdvReac Type Severity Reaction Status Date / Time No Known Allergies Allergy Verified 10/17/20 08:17 Home Meds: Home Meds SUMAtriptan [Imitrex] 1 tab PO ASDIRECTED 07/05/20 [History] Acetaminophen/Butalbital/Caff [Fioricet 325-50-40 MG] 1 each PO Q4H PRN #20 tab 10/17/20 [Rx] Aspirin/Acetaminophen/Caffeine [Excedrin Migraine Caplet] 1 dose PO ASDIRECTED 10/17/20 [History] ondansetron HCL [Zofran] 4 mg PO ASDIRECTED PRN 10/17/20 [History] Past Medical History - Past Health History Medical/Surgical History: Denies Medical/Surgical History HEENT History: Reports: None Cardiovascular History: Reports: None Respiratory History: Reports: None Gastrointestinal History: Reports: None Genitourinary History: Reports: None 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 LEGAL ARCHIVIST History: LEEP Musculoskeletal History: Reports: None Neurological History: Reports: Migraines Psychiatric History: Reports: Anxiety Endocrine/Metabolic History: Reports: None Hematologic History: Reports: None Immunologic History: Reports: None Oncologic (Cancer) History: Reports: None Dermatologic History: Reports: None - Infectious Disease History Infectious Disease History: Reports: Chicken Pox Other Infectious Disease History: childhood - Past Surgical History Head Surgeries/Procedures: Reports: None Female Surgical History: Reports: LEEP Neurological Surgical History: Reports: None Social & Family History - Family History Family Medical History: No Pertinent Family History Endocrine/Metabolic: Reports: Diabetes, Type I - Tobacco Use Tobacco Use Status *Q: Current Every Day Tobacco User Years of Tobacco use: 20 Packs/Tins Daily: 1 - Caffeine Use Caffeine Use: Reports: Coffee, Soda Caffeine Use Comment: 3 cups daily - Recreational Drug Use Recreational Drug Use: No - Living Situation & Occupation Living situation: Reports: with Significant Other Occupation: Employed ED ROS GENERAL - Review of Systems Review Of Systems: Comprehensive ROS is negative, except as noted in HPI. ED EXAM, GENERAL - Physical Exam Exam: See Below Exam Limited By: No Limitations General Appearance: Alert, WD/WN, No Apparent Distress Eye Exam: Bilateral Eye: EOMI, PERRL Ears: Hearing Grossly Normal Throat/Mouth: Normal Voice, No Airway Compromise Head: Atraumatic, Normocephalic Neck: Normal Inspection Respiratory/Chest: No Respiratory Distress, Lungs Clear, Normal Breath Sounds, No Accessory Muscle Use Cardiovascular: Normal Peripheral Pulses, Regular Rate, Rhythm GI/Abdominal: Soft, Non-Tender Extremities: Normal Inspection Neurological: Alert, Oriented, CN II-XII Intact, Normal Cognition, Normal Gait, No Motor/Sensory Deficits Psychiatric: Normal Affect, Normal Mood Skin Exam: Warm, Dry, Intact, Normal Color Course - Vital Signs Last Recorded V/S: Last Vital Signs Temp 97.4 F 10/17/20 08:19 Pulse 78 10/17/20 08:51 Resp 16 10/17/20 08:19 BP 108/56 L 10/17/20 08:51 Pulse Ox 98 10/17/20 08:51 - Orders/Labs/Meds Orders: Active Orders 24 hr Category Date Time Status Sodium Chloride 0.9% [Saline Flush] Med 10/17/20 08:22 Active 10 ml FLUSH ASDIRECTED PRN Sodium Chloride 0.9% [Saline Flush] Med 10/17/20 08:22 Active 2.5 ml FLUSH ASDIRECTED PRN Saline Lock Insert [OM.PC] Stat Oth 10/17/20 08:22 Ordered Medication Orders Sodium Chloride (Sodium Chloride 0.9% 10 Ml Syringe) 10 ml FLUSH ASDIRECTED PRN PRN Reason: Keep Vein Open Last Admin: 10/17/20 08:44 Dose: 10 ml Documented by: YAMILETH Sodium Chloride (Sodium Chloride 0.9% 2.5 Ml Syringe) 2.5 ml FLUSH ASDIRECTED PRN PRN Reason: Keep Vein Open Last Admin: 10/17/20 08:44 Dose: 2.5 ml Documented by: YAMILETH Meds: Medications Generic Name Dose Route Start Last Admin Trade Name Freq PRN Reason Stop Dose Admin Sodium Chloride 10 ml 10/17/20 08:22 10/17/20 08:44 Sodium Chloride 0.9% 10 Ml Syringe FLUSH 10 ml ASDIRECTED PRN Administration Keep Vein Open Sodium Chloride 2.5 ml 10/17/20 08:22 10/17/20 08:44 Sodium Chloride 0.9% 2.5 Ml Syringe FLUSH 2.5 ml ASDIRECTED PRN Administration Keep Vein Open Discontinued Medications Generic Name Dose Route Start Last Admin Trade Name Freq PRN Reason Stop Dose Admin Acetaminophen 1,000 mg 10/17/20 08:22 10/17/20 08:44 Acetaminophen 500 Mg Tab PO 10/17/20 08:23 1,000 mg ONETIME ONE Administration Diphenhydramine HCl 25 mg 10/17/20 08:22 10/17/20 08:43 Diphenhydramine 50 Mg/Ml Sdv IVPUSH 10/17/20 08:23 25 mg ONETIME ONE Administration Sodium Chloride 1,000 mls @ 999 mls/hr 10/17/20 08:22 10/17/20 08:42 Normal Saline IV 10/17/20 09:22 999 mls/hr .Bolus ONE Administration Ketorolac Tromethamine 15 mg 10/17/20 08:23 10/17/20 08:43 Ketorolac 15 Mg/Ml Sdv IVPUSH 10/17/20 08:24 15 mg ONETIME ONE Administration Metoclopramide HCl 10 mg 10/17/20 08:22 10/17/20 08:44 Metoclopramide 10 Mg/2 Ml Sdv IVPUSH 10/17/20 08:23 10 mg ONETIME ONE Administration - Re-Assessments/Exams Free Text/Narrative Re-Assessment/Exam: 10/17/20 08:29 Patient has responded in the past 2 Toradol, Tylenol, Reglan, Benadryl. Will give these meds in addition to IV fluid bolus. Will reassess. I have a very low suspicion for acute intracranial pathology and will defer CT imaging at this time given the normal neurologic exam and patient's known history of migraine headaches. 10/17/20 09:39 Patient is feeling substantially better after medications. Will discharge with a short course of Fioricet and recommend follow-up with PMD. Return precautions discussed at length. Departure - Departure Time of Disposition: 09:40 Disposition: Home, Self-Care 01 Condition: Good Clinical Impression: Migraine Qualifiers: Migraine type: unspecified Status migrainosus presence: without status migrainosus Intractability: not intractable Qualified Code(s): G43.909 - Migrai ne, unspecified, not intractable, without status migrainosus - Discharge Information Prescriptions: Acetaminophen/Butalbital/Caff [Fioricet 325-50-40 MG] 1 each PO Q4H PRN #20 tab PRN Reason: Headache Instructions: Chronic Migraine Headache Referrals: Jed Matt MD [Primary Care Provider] - Forms: ED Department Discharge Additional Instructions: The following information is given to patients seen in the emergency department who are being discharged to home. This information is to outline your options for follow-up care. We provide all patients seen in our emergency department with a follow-up referral. The need for follow-up, as well as the timing and circumstances, are variable depending upon the specifics of your emergency department visit. If you don't have a primary care physician on staff, we will provide you with a referral. We always advise you to contact your personal physician following an emergency department visit to inform them of the circumstance of the visit and for follow-up with them and/or the need for any referrals to a consulting specialist. The emergency department will also refer you to a specialist when appropriate. This referral assures that you have the opportunity for follow-up care with a specialist. All of these measure are taken in an effort to provide you with optimal care, which includes your follow-up. Under all circumstances we always encourage you to contact your private physician who remains a resource for coordinating your care. When calling for follow-up care, please make the office aware that this follow-up is from your recent emergency room visit. If for any reason you are refused follow-up, please contact the [facility] Emergency Department at and asked to speak to the emergency department charge nurse. Please follow up with your primary care physician. If you do not have a primary care physician, see below: [facility] Primary [facility] [address], [place] [id number] [facility] [address] [place], [place] [address] [facility] [address] [place] [address] Sepsis Event Note (ED) - Evaluation Sepsis Screening Result: No Definite Risk - Focused Exam Vital Signs: Vital Signs Temp Pulse Resp BP Pulse Ox 10/17/20 08:51 78 108/56 L 98 10/17/20 08:19 97.4 F 83 16 114/45 L 99 - My Orders Last 24 Hours: My Active Orders 10/17/20 08:22 Sodium Chloride 0.9% [Saline Flush] 10 ml FLUSH ASDIRECTED PRN Sodium Chloride 0.9% [Saline Flush] 2.5 ml FLUSH ASDIRECTED PRN Saline Lock Insert [OM.PC] Stat - Assessment/Plan Last 24 Hours: My Active Orders 10/17/20 08:22 Sodium Chloride 0.9% [Saline Flush] 10 ml FLUSH ASDIRECTED PRN Sodium Chloride 0.9% [Saline Flush] 2.5 ml FLUSH ASDIRECTED PRN Saline Lock Insert [OM.PC] Stat
[2020-10-17 10:03] VITALS: BP 108/48; PULSE 62
== END 2020-10-17 09:55 | disposition home or self-care (01) ==
LOC: MW.ED 08:06
DX: G43.909 Migraine, unspecified, not intractable, without status migrainosus (principal); Z72.0 Tobacco use
CPT/HCPCS: 96374; 96375; 99283; A9270; J1200; J1885; J2765; J7030

== ENCOUNTER 2020-12-26 08:49 | Emergency (ER) | payer MEDICAID ==
[2020-12-26] MEDS ORDERED: Sodium Chloride 0.9% 1,000 ML IV ONE (09:44)
[2020-12-26] MEDS ORDERED: Ondansetron 4 MG/2 ML SDV IVPUSH ONE (09:44)
[2020-12-26] MEDS ORDERED: Ketorolac 30 MG/ML SDV IVPUSH ONE (09:44)
[2020-12-26] MEDS ORDERED: Metoclopramide 10 MG/2 ML SDV IV ONE (09:44)
[2020-12-26] MEDS ORDERED: diphenhydrAMINE 50 MG/ML SDV IVPUSH ONE (09:44)
--- NOTE | 2020-12-26 09:55 | EDM.PDOC ---
ED HPI GENERAL MEDICAL PROBLEM - General Chief Complaint: Headache Stated Complaint: MIGRAINE/NAUSEA Time Seen by Provider: 12/26/20 09:37 Source of Information: Reports: Patient History Limitations: Reports: No Limitations - History of Present Illness INITIAL COMMENTS - FREE TEXT/NARRATIVE: HISTORY AND PHYSICAL: History of present illness: Patient is a 35-year-old female who presents to the emergency room with complaints of migraine headache, nausea, light sensitivity/noise sensitivity and dizziness. Patient states she has a longstanding history of migraines and this is typical for her. She usually takes Excedrin Migraine [id number] but states she did not take it in time, it usually presents to the ER if her migraines get this bad. Patient denies injury, trauma or falls. Denies any fever, chills, change in vision, syncope or near syncope. Denies any chest pain, back pain, shortness of breath or cough. Denies any abdominal pain, diarrhea, constipation or dysuria. Has not noted any blood in urine or stool. Patient has been eating and drinking appropriately. No recent travel or sick contacts. Review of systems: As per history of present illness and below otherwise all systems reviewed and negative. Past medical history: As per history of present illness and as reviewed below otherwise noncontributory. Surgical history: As per history of present illness and as reviewed below otherwise noncontributory. Social history: See social history for further information Family history: As per history of present illness and as reviewed below otherwise noncontributory. Physical exam: General: Well developed and well nourished. Alert and orientated x 3. Nontoxic in appearance and in no acute distress. Vital signs are stable and have been reviewed by me. Nursing notes were reviewed. HEENT: Atraumatic, normocephalic, pupils equal and reactive bilaterally, negative for conjunctival pallor or scleral icterus, mucous membranes moist, TMs normal bilaterally, throat clear, neck supple, nontender, trachea midline. No drooling or trismus noted. No meningeal signs. No hot potato voice noted. Lungs: Clear to auscultation bilaterally. No wheezes, rales, or rhonchi. Chest nontender. Normal work of breathing, no accessory muscles used. Heart: S1S2, regular rate and rhythm without overt murmur, gallops, or rubs. No JVD. No peripheral edema Abdomen: Soft, nondistended, nontender. Normoactive bowel sounds. Negative for masses or costovertebral tenderness. Pelvis: Stable nontender. Genitourinary/Rectal: Deferred. Skin: Intact, warm, dry. No lesions or rashes noted. Hematologic: No petechiae or purpra. Mucosa appropriate color and normal nail bed color and refill. Extremities: Atraumatic, moves all extremities per self without difficulty or deficits, negative for cords or calf pain. Neurovascular unremarkable. Neuro: Awake, alert, oriented. Cranial nerves II through XII unremarkable. Cerebellum unremarkable. Motor and sensory unremarkable throughout. Exam nonfocal. Psychiatric: Mood and affect are appropriate. Normal thought process. Answering questions appropriately. Please note that the patient was seen and evaluated during the 2019 SARS-CoV-2 novel coronavirus pandemic period. Community viral transmission is ongoing at time of this encounter and the emergency department is operating under pandemic response procedures. Medical Decision Making: Patient is a 35-year-old female who presents to the emergency room with complaints of migraine headache, nausea, light sensitivity, noise sensitivity and dizziness. She has routine migraines and states this is not an typical for her. She declines wanting any head CT or labs done today. She states she has had the migraine cocktail before and it has worked well in the past. She denies any concern for today. We will give her some IV fluid, medications and reassess after those are completed. Patient feels much improved. Her vital signs are stable. I do see she has had Fioricet available to her in the past, she states she does not have any more. I will refill this and have her follow-up with her primary care provider. I have talked with the patient about today's findings, in addition to providing specific details for plan of care. Reassessment at the time of disposition demonstrates that the patient is in no acute distress. The patient is stable for discharge, counseling was provided and we discussed in great detail signs and symptoms that would prompt them to return to the Emergency Department. Medication, follow up and supportive care measures were reviewed and discussed. Voices understanding and is agreeable to plan of care. Denies any further questions or concerns at this time. Diagnostics: None Therapeutics: IV fluid, Zofran, Toradol, Reglan, Benadryl Prescription: Fioricet Impression: Migraine headache Plan: 1. You were evaluated today on an emergent basis. You were given some medications today that can cause drowsiness so please do not drive for a few hours this is can cause impairment. I have refilled your Fioricet medication which you can take at the onset of a migraine headache. 2. You can alternate Tylenol and ibuprofen as needed for pain and fever management. 3. We encourage you to follow up with your primary care provider and/or recommended specialist in the next few days for re-evaluation and further care/management. 4. If your symptoms should worsen, new symptoms develop or any of the signs and symptoms we discussed should arise please return to the emergency room or call 911 (if needed). Definitive disposition and diagnosis as appropriate pending reevaluation and review of above. headache Pain Score (Numeric/FACES): 10 - Related Data Allergies Allergy/AdvReac Type Severity Reaction Status Date / Time No Known Allergies Allergy Verified 10/17/20 08:17 Home Meds: Home Meds SUMAtriptan [Imitrex] 1 tab PO ASDIRECTED 07/05/20 [History] Acetaminophen/Butalbital/Caff [Fioricet 325-50-40 MG] 1 each PO Q4H PRN #20 tab 10/17/20 [Rx] Aspirin/Acetaminophen/Caffeine [Excedrin Migraine Caplet] 1 dose PO ASDIRECTED 10/17/20 [History] ondansetron HCL [Zofran] 4 mg PO ASDIRECTED PRN 10/17/20 [History] Acetaminophen/Butalbital/Caff [Fioricet 325-50-40 MG] 1 each PO Q4HR PRN #15 tab 12/26/20 [Rx] Past Medical History - Past Health History Medical/Surgical History: Denies Medical/Surgical History HEENT History: Reports: None Cardiovascular History: Reports: None Respiratory History: Reports: None Gastrointestinal History: Reports: None Genitourinary History: Reports: None MARK[employer]ER 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 MARKER [employer]ER History: LEEP Musculoskeletal History: Reports: None Neurological History: Reports: Migraines Psychiatric History: Reports: Anxiety Endocrine/Metabolic History: Reports: None Hematologic History: Reports: None Immunologic History: Reports: None Oncologic (Cancer) History: Reports: None Dermatologic History: Reports: None - Infectious Disease History Infectious Disease History: Reports: Chicken Pox Other Infectious Disease History: childhood - Past Surgical History Head Surgeries/Procedures: Reports: None Female Surgical History: Reports: LEEP Neurological Surgical History: Reports: None Social & Family History - Family History Family Medical History: No Pertinent Family History Endocrine/Metabolic: Reports: Diabetes, Type I - Caffeine Use Caffeine Use: Reports: Coffee, Soda Caffeine Use Comment: 3 cups daily - Living Situation & Occupation Living situation: Reports: with Significant Other Occupation: Employed ED ROS GENERAL - Review of Systems Review Of Systems: Comprehensive ROS is negative, except as noted in HPI. - Physical Exam Exam: See Below (See dictation) Course - Vital Signs Last Recorded V/S: Last Vital Signs Temp 96.8 F L 12/26/20 09:43 Pulse 74 12/26/20 10:03 Resp 16 12/26/20 10:03 BP 104/66 12/26/20 09:43 Pulse Ox 100 12/26/20 10:03 - Orders/Labs/Meds Orders: Active Orders 24 hr Category Date Time Status Sodium Chloride 0.9% [Normal Saline] 1,000 ml Med 12/26/20 09:44 Active IV STAT Medication Orders Sodium Chloride (Normal Saline) 1,000 mls @ 999 mls/hr IV STAT ONE Stop: 12/26/20 10:44 Last Admin: 12/26/20 09:54 Dose: 999 mls/hr Documented by: [email or web address] Meds: Medications Generic Name Dose Route Start Last Admin Trade Name Freq PRN Reason Stop Dose Admin Sodium Chloride 1,000 mls @ 999 mls/hr 12/26/20 09:44 12/26/20 09:54 Normal Saline IV 12/26/20 10:44 999 mls/hr STAT ONE Administration Discontinued Medications Generic Name Dose Route Start Last Admin Trade Name Freq PRN Reason Stop Dose Admin Diphenhydramine HCl 50 mg 12/26/20 09:44 12/26/20 09:55 Diphenhydramine 50 Mg/Ml Sdv IVPUSH 12/26/20 09:45 50 mg ONETIME ONE Administration Ketorolac Tromethamine 30 mg 12/26/20 09:44 12/26/20 09:55 Ketorolac 30 Mg/Ml Sdv IVPUSH 12/26/20 09:45 30 mg ONETIME ONE Administration Metoclopramide HCl 10 mg 12/26/20 09:44 12/26/20 09:55 Metoclopramide 10 Mg/2 Ml Sdv IV 12/26/20 09:45 10 mg ONETIME ONE Administration Ondansetron HCl 4 mg 12/26/20 09:44 12/26/20 09:55 Ondansetron 4 Mg/2 Ml Sdv IVPUSH 12/26/20 09:45 4 mg ONETIME ONE Administration Departure - Departure Time of Disposition: 10:17 Disposition: Home, Self-Care 01 Clinical Impression: Migraine headache Qualifiers: Migraine type: unspecified Status migrainosus presence: without status migrai nosus Intractability: not intractable Qualified Code(s): G43.909 - Migraine, unspecified, not intractable, without status migrainosus - Discharge Information Prescriptions: Acetaminophen/Butalbital/Caff [Fioricet 325-50-40 MG] 1 each PO Q4HR PRN #15 tab PRN Reason: Headache/Pain Instructions: Migraine Headache, [id number] Referrals: PCP,None [Primary Care Provider] - Forms: ED Department Discharge Additional Instructions: The following information is given to patients seen in the emergency department who are being discharged to home. This information is to outline your options for follow-up care. We provide all patients seen in our emergency department with a follow-up referral. The need for follow-up, as well as the timing and circumstances, are variable depending upon the specifics of your emergency department visit. If you don't have a primary care physician on staff, we will provide you with a referral. We always advise you to contact your personal physician following an emergency department visit to inform them of the circumstance of the visit and for follow-up with them and/or the need for any referrals to a consulting specialist. The emergency department will also refer you to a specialist when appropriate. This referral assures that you have the opportunity for follow-up care with a specialist. All of these measure are taken in an effort to provide you with optimal care, which includes your follow-up. Under all circumstances we always encourage you to contact your private physician who remains a resource for coordinating your care. When calling for follow-up care, please make the office aware that this follow-up is from your recent emergency room visit. If for any reason you are refused follow-up, please contact the [facility] Emergency Department at and asked to speak to the emergency department charge nurse. [facility] [address] [place] [address] [facility] [address] [place] [address] Thank you for choosing the [facility] emergency department in [place] for your medical needs today. It was a pleasure caring for you. Today you were seen in the emergency department for migraine headache. 1. You were evaluated today on an emergent basis. You were given some medications today that can cause drowsiness so please do not drive for a few hours this is can cause impairment. I have refilled your Fioricet medication which you can take at the onset of a migraine headache. 2. You can alternate Tylenol and ibuprofen as needed for pain and fever management. 3. We encourage you to follow up with your primary care provider and/or recommended specialist in the next few days for re-evaluation and further care/management. 4. If your symptoms should worsen, new symptoms develop or any of the signs and symptoms we discussed should arise please return to the emergency room or call 911 (if needed). Sepsis Event Note (ED) - Evaluation Sepsis Screening Result: No Definite Risk - Focused Exam Vital Signs: Vital Signs Temp Pulse Resp BP Pulse Ox 12/26/20 10:03 74 16 100 12/26/20 09:43 96.8 F L 64 18 104/66 97 - My Orders Last 24 Hours: My Active Orders 12/26/20 09:44 Sodium Chloride 0.9% [Normal Saline] 1,000 ml IV STAT - Assessment/Plan Last 24 Hours: My Active Orders 12/26/20 09:44 Sodium Chloride 0.9% [Normal Saline] 1,000 ml IV STAT
[2020-12-26 11:21] VITALS: BP 95/65; PULSE 65
== END 2020-12-26 11:18 | disposition home or self-care (01) ==
LOC: MW.ED 08:49
DX: G43.909 Migraine, unspecified, not intractable, without status migrainosus (principal)
CPT/HCPCS: 96374; 96375; 99283; J1200; J1885; J2405; J2765; J7030

== ENCOUNTER 2021-04-23 16:23 | Emergency (ER) | payer MEDICAID ==
[2021-04-23] MEDS ORDERED: Ondansetron 4 MG/2 ML SDV IVPUSH ONE (16:27)
[2021-04-23] MEDS ORDERED: Sodium Chloride 0.9% 1,000 ML IV ONE (16:27)
[2021-04-23] MEDS ORDERED: diphenhydrAMINE 50 MG/ML SDV IVPUSH ONE (16:27)
[2021-04-23] MEDS ORDERED: Ketorolac 30 MG/ML SDV IVPUSH ONE (16:27)
[2021-04-23] MEDS ORDERED: Metoclopramide 10 MG/2 ML SDV IV ONE (16:27)
[2021-04-23 18:11] VITALS: BP 112/60; PULSE 74
== END 2021-04-23 18:00 | disposition home or self-care (01) ==
LOC: MW.ED 16:23
DX: G43.909 Migraine, unspecified, not intractable, without status migrainosus (principal)
CPT/HCPCS: 96374; 96375; 99283; J1200; J1885; J2405; J2765; J7030; 99282

== ENCOUNTER 2022-11-12 11:47 | Emergency (ER) | payer MEDICAID | END 2022-11-12 12:30 | disposition left against medical advice (07) | LOC: MW.ED 11:47 | DX: Z53.21 Procedure and treatment not carried out due to patient leaving prior to being seen by health care provider (principal) ==

== ENCOUNTER 2023-09-16 13:33 | Emergency (ER) | payer SELFPAY ==
[2023-09-16] MEDS: Ketorolac 30 MG/ML SDV IVPUSH ONE (13:49)
[2023-09-16] MEDS: Ondansetron 4 MG/2 ML SDV IVPUSH ONE (13:50)
[2023-09-16] MEDS: diphenhydrAMINE 50 MG/ML SDV IVPUSH ONE (13:50)
[2023-09-16] MEDS: Metoclopramide 10 MG/2 ML SDV IVPUSH ONE (13:50)
[2023-09-16] MEDS: Sodium Chloride 0.9% 1,000 ML IV ONE (14:02)
[2023-09-16 15:05] VITALS: BP 99/57; PULSE 71
== END 2023-09-16 15:05 | disposition home or self-care (01) ==
LOC: MW.ED 13:33
DX: G43.909 Migraine, unspecified, not intractable, without status migrainosus (principal)
CPT/HCPCS: 96361; 96374; 96375; 99283; J1200; J1885; J2405; J2765; J7030; 99284

== ENCOUNTER 2024-08-22 21:35 | Emergency (ER) | payer SELFPAY ==
[2024-08-22 22:49] VITALS: BP 130/70; PULSE 78
== END 2024-08-22 22:49 | disposition home or self-care (01) ==
LOC: MW.ED 21:35
DX: S93.402A Sprain of unspecified ligament of left ankle, initial encounter (principal); X50.1XXA Overexertion from prolonged static or awkward postures, initial encounter; Y93.89 Activity, other specified
CPT/HCPCS: 73600-26-LT; 73600-LT; 99282; 99283